=== PATIENT | male | born 1945 | race Caucasian/White ===

== ENCOUNTER 2023-11-22 14:56 | Emergency (ER) | payer OTHER ==
[2023-11-22] MEDS ORDERED: NA CHLORIDE 0.9% 1,000 ML ONE (16:18)
[2023-11-22 16:22] LABS: Absolute Eosinophils 0.2 K/uL (0-0.5); Absolute Lymphocytes (CBC) 1.3 K/uL (0.7-4.9); Absolute Monocytes 0.8 K/uL (0.1-1.3); Absolute Neutrophil 3.7 K/uL (1.8-8.0); Basophils % 0.8 % (0-1.3); Eosinophils % 3.6 % (0-4.4); Hematocrit 39.2 % (39.6-49.0); Hemoglobin 12.9 g/dL (13.6-17.9); Lymphocytes % 21.6 % (15.3-44.8); MCH 27.8 pg (27.0-35.0); MCHC 32.8 g/dL (32.0-36.0); MCV 84.7 fL (80-100); MPV 7.5 fL (7.6-11.3); Monocytes % 12.7 % (3.3-12.3); Neutrophils % 61.3 % (41.7-73.7); Nucleated Red Blood Cells % 0.1 % (0-0); Platelets 221 thou/uL (152-406); RBC Red Blood Cell Count 4.63 M/uL (4.33-5.43); Red Cell Distribution Width 15.4 % (12.1-15.2)
[2023-11-22 16:28] LABS: PT Prothrombin Time 12.5 SECONDS (9.4-12.5); PTT, Activated Partial Thromb 33.8 SECONDS (24.3-36.9); Protime INR 1.14
[2023-11-22 16:37] LABS: Anion Gap 6.8 mEq/L (5.0-15.0); Potassium 3.8 mEq/L (3.5-5.1)
[2023-11-22 17:06] LABS: Specific Gravity 1.013 (1.005-1.030); Sqamous Epithelial None Seen /HPF (None Seen); Urine Bacteria <20 /HPF (<20); Urine Bilirubin NEGATIVE (Negative); Urine Blood 3+ (OVER) (Negative); Urine Clarity Extremely Turbid (Clear); Urine Color Brown (Yellow); Urine Culture Reflex Order REFLEXED; Urine Glucose NEGATIVE (Negative); Urine Ketones NEGATIVE (Negative); Urine Microscopic Reflex YN ORDER UMIC; Urine Mucus Slight /HPF (None Seen); Urine Nitrite NEGATIVE (Negative); Urine Protein 1+ (Negative); Urine RBC >50 /HPF (None Seen); Urine Urobilinogen Normal (Normal); Urine WBC >50 /HPF (<5)
[2023-11-22] MEDS ORDERED: CEFTRIAXONE 1000 MG/VIAL ONE (17:54)
--- NOTE | 2023-11-22 17:58 | ER ---
Nurse's Notes [facility] Name: Allen Swanson Age: 78 yrs Sex: Male : 1945 Arrival Date: 11/22/2023 Time: 14:56 Bed 13 Private MD: Diagnosis: Hematuria, unspecified;UTI/ Urinary tract infection, site not specified Presentation: 11/21 15:20 Chief complaint: Patient states: blood in urinary catheter. Coronavirus screen: At this ko1 time, the client does not indicate any symptoms associated with coronavirus-19. Ebola Screen: No symptoms or risks identified at this time. Initial Sepsis Screen: Does the patient meet any 2 criteria? No. Patient's initial sepsis screen is negative. Does the patient have a suspected source of infection? No. Patient's initial sepsis screen is negative. Risk Assessment: Do you want to hurt yourself or someone else? Patient reports no desire to harm self or others. Onset of symptoms was November 22, 2023. 15:20 Method Of Arrival: Ambulatory ko1 15:20 Acuity: RUDY 3 ko1 Triage Assessment: 15:22 General: Appears in no apparent distress. Behavior is calm, cooperative, appropriate ko1 for age. Pain: Denies pain. Historical: - Allergies: 15:22 No Known Allergies; ko1 - Home Meds: 15:22 Unable to obtain [Active]; ko1 - PMHx: 15:22 History of urinary tract infection; Hypertensive disorder; ko1 - PSHx: 15:22 None; ko1 - Immunization history:: Adult Immunizations up to date. - Infectious Disease History:: Denies. - Social history:: Smoking status: Patient denies any tobacco usage or history of. - Family history:: not pertinent. - Hospitalizations: : No recent hospitalization is reported. Screenin:30 [facility] ED Fall Risk Assessment (Adult) History of falling in the last 3 months, rs5 including since admission No falls in past 3 months (0 pts) Confusion or Disorientation No (0 pts) Intoxicated or Sedated No (0 pts) Impaired Gait No (0 pts) Mobility Assist Device Used No (0 pt) Altered Elimination No (0 pt) Score/Fall Risk Level 0 - 2 = Low Risk Oriented to surroundings, Maintained a safe environment. Abuse screen: Denies threats or abuse. Nutritional screening: No deficits noted. Tuberculosis screening: No symptoms or risk factors identified. Assessment: 15:30 General: Appears in no apparent distress. uncomfortable, Behavior is calm, cooperative. rs5 Pain: Denies pain. Neuro: Level of Consciousness is awake, alert, obeys commands, Oriented to person, place, time, situation. Cardiovascular: Patient's skin is warm and dry. Respiratory: Airway is patent Respiratory effort is even, unlabored, Respiratory pattern is regular, symmetrical. GI: Abdomen is round non-distended, Abd is soft and non tender X 4 quads. : Echavarria in place clamped 300 cc of pink colored urine noted in urine collection bag. 15:30 EENT: No signs and/or symptoms were reported regarding the EENT system. Derm: Skin is rs5 intact, Skin is pink, warm \T\ dry. Musculoskeletal: Range of motion: intact in all extremities. 16:00 Reassessment: to bedside, echavarria bag and echavarria removed per MD orders, 3 way echavarria rs5 inserted per MD orders using aseptic technique. Urine specimen collected and irrigation bag connected to 3 way echavarria. 16:40 Reassessment: 700 cc pink colored urine drained from urine collection bag. rs5 17:46 Reassessment: Patient and/or family updated on plan of care and expected duration. Pain rs5 level reassessed. Patient is alert, oriented x 3, equal unlabored respirations, skin warm/dry/pink. 800 cc clear colored urine drained from urine catheter bag. Vital Signs: 15:20 BP 119 / 74; Pulse 71; Resp 16; Temp 97.6; Pulse Ox 95% on R/A; ko1 17:46 BP 115 / 77; Pulse 74; Resp 17; Pulse Ox 99% on R/A; rs5 18:15 BP 117 / 78; Pulse 70; Resp 17; Pulse Ox 99% on R/A; rs5 ED Course: 14:59 Patient arrived in ED. ts1 15:07 Simba Aguero MD is Attending Physician. rn 15:22 Triage completed. ko1 15:22 Arm band placed on right wrist. Patient placed in an exam room, on a stretcher, on ko1 pulse oximetry, Patient notified of wait time. 15:30 Patient has correct armband on for positive identification. Placed in gown. Bed in low rs5 position. Call light in reach. Side rails up X2. 15:30 No provider procedures requiring assistance completed. rs5 15:40 Inserted saline lock: 20 gauge in right forearm, using aseptic technique. rs5 15:53 Hussein Chicas, RN is Primary Nurse. rs5 18:17 IV discontinued, intact, bleeding controlled, No redness/swelling at site. Pressure rs5 dressing applied. Administered Medications: 17:50 Drug: Rocephin IV 1 grams IV at calculated rate once; Given slow IV push per pharmacy rs5 instructions Route: IV; Rate: calculated rate; Site: right forearm; 18:05 Follow up: Response: No adverse reaction rs5 Medication: 17:21 VIS not applicable for this client. rs5 Outcome: 17:58 Discharge ordered by MD. rn 18:17 Discharged to home ambulatory, with family, rs5 18:17 Condition: stable 18:17 Discharge instructions given to patient, family, Instructed on discharge instructions, follow up and referral plans. medication usage, Demonstrated understanding of instructions, follow-up care, medications, Prescriptions given X 1, 18:20 Patient left the ED. rs5 Signatures: Simba Aguero MD MD rn Lisa Bartlett RN RN ko1 Hussein Chicas, RN RN rs5 Jessica Cordero PAS PAS ts1 Corrections: (The following items were deleted from the chart) 17:23 15:40 Reassessment: to bedside, echavarria bag and echavarria removed per MD orders, 3 way echavarria rs5 inserted per MD orders using aseptic technique. Urine specimen collected and irrigation bag connected to 3 way echavarria. rs5 17:46 16:40 Reassessment: 700 cc pink colored urine drained form urine collection bag. rs5 rs5 18:41 18:26 Patient left the ED. rs5 rs5
--- NOTE | 2023-11-22 17:59 | EDPHYS ---
Physician Documentation [facility] Name: Allen Swanson Age: 78 yrs Sex: Male : 1945 Arrival Date: 11/22/2023 Time: 14:56 Bed 13 Private MD: ED Physician Simba Aguero HPI: 11/21 17:12 This 78 yrs old Male presents to ER via Ambulatory with complaints of Blood In Catheter.rn 17:12 The patient presents with urinary symptoms, hematuria. Onset: The symptoms/episode rn began/occurred today. Modifying factors: The symptoms are alleviated by nothing, the symptoms are aggravated by nothing. Associated signs and symptoms: Pertinent positives: hematuria, Pertinent negatives: abdominal pain, dysuria, fever, vomiting. Severity of symptoms: At their worst the symptoms were mild, in the emergency department the symptoms have improved. The patient has not experienced similar symptoms in the past. Patient and family report hematuria that began today. Has indwelling Leo catheter for a few weeks now due to urinary retention. At some point recently patient had partially pulled out catheter catheter had to be replaced a week or 2 ago. No blood until today. No fever. No dysuria. No abdominal pain. Patient states otherwise feels okay. No blood thinners.. Historical: - Allergies: 15:22 No Known Allergies; ko1 - Home Meds: 15:22 Unable to obtain [Active]; ko1 - PMHx: 15:22 History of urinary tract infection; Hypertensive disorder; ko1 - PSHx: 15:22 None; ko1 - Immunization history:: Adult Immunizations up to date. - Infectious Disease History:: Denies. - Social history:: Smoking status: Patient denies any tobacco usage or history of. - Family history:: not pertinent. - Hospitalizations: : No recent hospitalization is reported. ROS: 17:12 Constitutional: Negative for fever, chills, and weight loss, Cardiovascular: Negative rn for chest pain, palpitations, and edema, Respiratory: Negative for shortness of breath, cough, wheezing, and pleuritic chest pain, Abdomen/GI: Negative for abdominal pain, nausea, vomiting, diarrhea, and constipation, Back: Negative for injury and pain, : Positive for hematuria MS/Extremity: Negative for injury and deformity, Skin: Negative for injury, rash, and discoloration, Neuro: Negative for headache, weakness, numbness, tingling, and seizure, Exam: 17:12 Constitutional: This is a well developed, well nourished patient who is awake, alert, rn and in no acute distress. Cardiovascular: Regular rate and rhythm. No pulse deficits. Respiratory: No increased work of breathing, no retractions or nasal flaring. Abdomen/GI: Soft, non-tender Male : Normal genitalia with no discharge or lesions. Catheter bag with small blood clot but otherwise is almost clear, lightly pink urine. Vital Signs: 15:20 BP 119 / 74; Pulse 71; Resp 16; Temp 97.6; Pulse Ox 95% on R/A; ko1 17:46 BP 115 / 77; Pulse 74; Resp 17; Pulse Ox 99% on R/A; rs5 18:15 BP 117 / 78; Pulse 70; Resp 17; Pulse Ox 99% on R/A; rs5 MDM: 15:07 Patient medically screened. rn 17:19 Differential diagnosis: UTI, Leo catheter problem. Data reviewed: vital signs, nurses rn notes. Data reviewed: lab test result(s), and as a result, I will discharge patient. Counseling: I had a detailed discussion with the patient and/or guardian regarding the historical points, exam findings, and any diagnostic results supporting the discharge/admit diagnosis, lab results, the need for outpatient follow up, to return to the emergency department if symptoms worsen or persist or if there are any questions or concerns that arise at home. Response to treatment: the patient's symptoms have markedly improved after treatment, and as a result, I will discharge patient. Special discussion: I discussed with the patient/guardian in detail that at this point there is no indication for admission to the hospital. It is understood, however, that if the symptoms persist or worsen the patient needs to return immediately for re-evaluation. Based on the history and exam findings, there is no indication for further emergent testing or inpatient evaluation. I discussed with the patient/guardian the need to see the primary care provider for further evaluation of the symptoms. I discussed with the patient/guardian the need to see the urologist for further evaluation of the symptoms. ED course: Patient with new onset hematuria, bladder irrigation shows clear urine now, no longer with clots or gross blood. Urine shows possible UTI, will discharge with antibiotics and have follow-up with urology. I have personally reviewed all of the results, including but not limited to blood tests deemed necessary to safely discharge this patient at this time. All results given to and printed out for patient. I personally went over all the results with the patient and answered all questions. Patient will follow-up with PCP and or specialist as discussed. Return precautions given and understood.. 11/21 15:29 Order name: Urinalysis w/ reflexes; Complete Time: 17:19 rn 11/21 15:29 Order name: CBC with Diff; Complete Time: 16:31 rn 11/21 15:29 Order name: Basic Metabolic Panel; Complete Time: 16:43 rn 11/21 15:29 Order name: Protime (+inr); Complete Time: 16:31 rn 11/21 15:29 Order name: Ptt, Activated; Complete Time: 16:31 rn 11/21 17:21 Order name: Urine Culture [facility] 11/21 15:29 Order name: Bladder Irrigation; Complete Time: 17:19 rn 11/21 15:29 Order name: IV Start; Complete Time: 17:19 rn Administered Medications: 17:50 Drug: Rocephin IV 1 grams IV at calculated rate once; Given slow IV push per pharmacy rs5 instructions Route: IV; Rate: calculated rate; Site: right forearm; 18:05 Follow up: Response: No adverse reaction rs5 Disposition Summary: 11/22/23 17:58 Discharge Ordered Notes: Location: Home rn Problem: new rn Symptoms: have improved rn Condition: Stable rn Diagnosis - Hematuria, unspecified rn - UTI/ Urinary tract infection, site not specified rn Followup: rn - With: Private Physician - When: As needed - Reason: Recheck today's complaints, Re-evaluation by your physician Discharge Instructions: - Discharge Summary Sheet rn - Indwelling Urinary Catheter Care, Adult rn - Hematuria, Adult rn - Urinary Tract Infection, Adult rn Forms: - Medication Reconciliation Form rn - Antibiotic newspaper photojournalist - Prescription Opioid Use rn - Patient Portal Instructions rn - Leadership Thank You Letter rn Prescriptions: - cefpodoxime 100 mg Oral Tablet - take 1 tablet ORAL route every 12 hours for 10 days take with food; 20 tablet; rn Refills: 0, Product Selection Permitted Signatures: Dispatcher [employer] EDGA Simba Aguero MD MD rn Oliver, Kathy, RN RN ko1 Chicas, Hussein, RN RN rs5
[2023-11-22 18:36] VITALS: BP 115/77; TEMP 97.6; O2SAT 99
== END 2023-11-22 18:26 | disposition home or self-care (01) ==
LOC: ER 14:56
DX: N39.0 Urinary tract infection, site not specified (principal)
CPT/HCPCS: 87088; 85025; 81001; 87086; 80048; 36415; 85610; 85730; 96374; 99284; J7030; J0696

== ENCOUNTER 2024-01-04 17:16 | Inpatient (IN) | payer OTHER ==
[2024-01-04] MEDS ORDERED: NA CHLORIDE 0.9% 1,000 ML ONE (19:39)
[2024-01-04 19:52] LABS: Absolute Eosinophils 0.8 K/uL (0-0.5); Absolute Lymphocytes (CBC) 0.2 K/uL (0.7-4.9); Absolute Monocytes 2.5 K/uL (0.1-1.3); Absolute Neutrophil 5.9 K/uL (1.8-8.0); Eosinophils % 8.5 % (0-4.4); Hematocrit 34.4 % (39.6-49.0); Hemoglobin 11.4 g/dL (13.6-17.9); MCH 28.1 pg (27.0-35.0); MCHC 33.2 g/dL (32.0-36.0); MCV 84.9 fL (80-100); MPV 8.3 fL (7.6-11.3); Monocytes % 26.9 % (3.3-12.3); Neutrophils % 62.6 % (41.7-73.7); Platelets 159 thou/uL (152-406); RBC Red Blood Cell Count 4.06 M/uL (4.33-5.43); Red Cell Distribution Width 15.3 % (12.1-15.2)
[2024-01-04 19:54] LABS: PT Prothrombin Time 14.1 SECONDS (9.4-12.5); PTT, Activated Partial Thromb 27.9 SECONDS (24.3-36.9); Protime INR 1.27
--- NOTE | 2024-01-04 20:05 | RAD REPORT ---
EXAM DESCRIPTION: Antonino Single View01/04/2024 7:55 pm CLINICAL HISTORY: cough, fever COMPARISON: No comparisons TECHNIQUE: Portable AP view of the chest. FINDINGS: The lungs are clear. No pneumothorax or effusion. Heart is normal in size. Prominence of the pulmonary major vascular markings. IMPRESSION: Prominence of the pulmonary major vascular markings, may reflect an element of pulmonary hypertension. No other acute cardiopulmonary process.
[2024-01-04 20:06] LABS: SARS-CoV-2 Antigen CONTROL BLUE LINE VIS/BG OK; SARS-CoV-2 Antigen Rapid Res Negative (Negative)
[2024-01-04 20:07] LABS: Albumin/Globulin Ratio 0.8 (1.1-1.8); Anion Gap 11.3 mEq/L (5.0-15.0); Bilirubin Total 1.3 mg/dL (0.2-1.0); Globulin 3.9 g/dL (2.3-3.5); Potassium 3.3 mEq/L (3.5-5.1); Protein, Total 6.9 g/dL (6.4-8.2)
[2024-01-04 20:47] LABS: Band Neutrophils 2 % (0-1); Differential Total Cells Count 100; Eosinophils 1 % (0-3); Lymphocytes 13 % (15-42); Monocytes 8 % (0-10); Segmented Neutrophils 76 % (40-80)
[2024-01-04 20:48] LABS: Blood Morphology Comment NOT SEEN (NOT SEEN); Platelet Estimate ADEQ
--- NOTE | 2024-01-04 20:52 | RAD REPORT ---
EXAM DESCRIPTION: CT - Abdomen Pelvis W Contrast - 01/04/2024 8:19 pm CLINICAL HISTORY: fever, UTI COMPARISON: Chest Single View dated 01/04/2024 TECHNIQUE: Thin cut axial CT imaging of the abdomen and pelvis was performed following intravenous a dministration of 90 mL Isovue 300. Multiplanar reformats were generated and reviewed. All CT scans are performed using dose optimization technique as appropriate and may include automated exposure control or mA/KV adjustment according to patient size. FINDINGS: No suspicious findings in the lung bases. The liver, spleen, and pancreas show no suspicious findings. Gallbladder is moderately distended with out other suspicious features Symmetric renal function is seen with no hydronephrosis or suspicious renal mass. Nonobstructing left lower renal pole 3 mm calculus. Other bilateral punctate calculi not exceeding 2 mm. Moderate sliding hiatal hernia. No dilated bowel loops or bowel wall thickening. No free air, free fl uid or inflammatory stranding. No hernia, mass or bulky lymphadenopathy. The urinary bladder is witho ut significant finding. Markedly enlarged prostate gland projecting against the bladder neck, with ca lcifications. No suspicious bony findings. IMPRESSION: Nonobstructing bilateral renal calculi not exceeding 3 mm. Markedly enlarged prostate gland, projecting against the bladder neck. Moderate hiatal hernia.
[2024-01-04 21:12] LABS: Specific Gravity 1.012 (1.005-1.030); Sqamous Epithelial <5 /HPF (None Seen); Urine Bacteria <20 /HPF (<20); Urine Bilirubin NEGATIVE (Negative); Urine Blood 2+ (Negative); Urine Clarity Extremely Turbid (Clear); Urine Color Light-Yellow (Yellow); Urine Culture Reflex Order REFLEXED; Urine Glucose NEGATIVE (Negative); Urine Ketones NEGATIVE (Negative); Urine Microscopic Reflex YN ORDER UMIC; Urine Mucus Slight /HPF (None Seen); Urine Nitrite NEGATIVE (Negative); Urine Protein TRACE (Negative); Urine Urobilinogen Normal (Normal); Urine WBC >50 /HPF (<5); Urine WBC Clump Few /HPF (None Seen); Urine Yeast (Budding) Trace /HPF (None Seen)
--- NOTE | 2024-01-04 21:22 | EDPHYS ---
Physician Documentation [facility] Name: Allen Swanson Age: 78 yrs Sex: Male : 1945 Arrival Date: 01/04/2024 Time: 17:16 Bed 9 Private MD: ED Physician Joce Myrick HPI: 01/03 18:04 This 78 yrs old Male presents to ER via Ambulatory with complaints of Blood Pressure rn Problem, high heart rate, Fever. 18:04 The patient reports fever, that was measured at 101 degrees Fahrenheit. Onset: The rn symptoms/episode began/occurred at an unknown time. Modifying factors: there are no obvious modifying factors. Severity of symptoms: At their worst the symptoms were moderate in the emergency department the symptoms are unchanged. The patient has experienced similar episodes in the past. The patient has been recently seen by a physician:. Family and patient report not feeling well for weeks, diagnosed with UTI, has been on 5 different abx, still having fever and chills. BP borderline low per family. Report 101 fever with HR to 116. Took tylenol at home with improvement of HR and fever. No abd pain. + cough with mild sob over last few days. . Historical: - Allergies: 17:59 No Known Allergies; tl4 - PMHx: 17:58 History of urinary tract infection; Hypertensive disorder; tl4 17:59 Skin cancer; tl4 - PSHx: 17:59 Skin cancer removal; tl4 - Immunization history:: Adult Immunizations unknown. - Infectious Disease History:: Denies. - Social history:: Smoking status: Patient denies any tobacco usage or history of. - Family history:: not pertinent. - Hospitalizations: : No recent hospitalization is reported. ROS: 18:04 Constitutional: + fever and chills Cardiovascular: Negative for chest pain, rn palpitations, and edema, Respiratory: + cough and sob Abdomen/GI: Negative for abdominal pain, nausea, vomiting, diarrhea, and constipation, MS/Extremity: Negative for injury and deformity, Skin: Negative for injury, rash, and discoloration, Neuro: + generalized weakness Exam: 18:04 Constitutional: This is a well developed, well nourished patient who is awake, alert, rn and in no acute distress. ENT: dry MM Cardiovascular: Regular rate and rhythm. No pulse deficits. Respiratory: No increased work of breathing, no retractions or nasal flaring. Abdomen/GI: Soft, non-tender MS/ Extremity: Pulses equal, no cyanosis. Neuro: Awake and alert, GCS 15 Vital Signs: 17:53 BP 104 / 62; Pulse 94; Resp 16; Temp 98.9(O); Pulse Ox 95% on R/A; Weight 71.21 kg; tl4 Height 5 ft. 9 in. ; Pain 0/10; 19:49 BP 109 / 70; Pulse 79; Resp 17; Temp 98.3; Pulse Ox 97% on R/A; Pain 0/10; le1 23:23 BP 128 / 85; Pulse 80; Resp 20; Pulse Ox 95% ; vc1 17:53 Body Mass Index 23.18 (71.21 kg, 175.26 cm) tl4 17:53 Pain Scale: Adult tl4 19:49 Pain Scale: Adult le1 MDM: 17:44 Patient medically screened. rn 20:36 Data reviewed: vital signs. ED course: Patient signed out to me by previous physician, ec2 in brief patient arrives today for evaluation of fever along with documented tachycardia at home. Patient reported with previous antibiotic therapy for urinary tract infections, undergoing 5 rounds of previous antibiotics. Patient has no specific complaints. Workup reveals a reassuring chest x-ray without focal opacity, plan is to follow-up urine studies, CT abdomen pelvis.. 20:57 ED course: CT imaging shows nonobstructing renal calculi, prostatomegaly, hiatal ec2 hernia. No evidence of infection. . 21:16 ED course: EKG independently reviewed and interpreted by me, shows normal sinus rhythm, ec2 rate of 73, no acute ST segment ovation's, intervals are nonconcerning, right bundle branch block noted.. 21:21 ED course: PreviousUrine is turbid, has leuk esterase, WBCs clumps. Will give ec2 antibiotics, admit for UTI. . 01/03 18:01 Order name: Blood Culture Adult (2) rn 01/03 18:01 Order name: CBC with Diff; Complete Time: 20:50 rn 01/03 18:01 Order name: CMP; Complete Time: 20:22 rn 01/03 18:01 Order name: Lactate w/ 2H reflex if indic.; Complete Time: 20:22 rn 01/03 18:01 Order name: Protime (+inr); Complete Time: 20:22 rn 01/03 18:01 Order name: Ptt, Activated; Complete Time: 20:22 rn 01/03 18:01 Order name: Urinalysis w/ reflexes; Complete Time: 21:20 rn 01/03 18:01 Order name: SARS RAPID; Complete Time: 20:22 rn 01/03 18:01 Order name: Flu; Complete Time: 20:22 rn 01/03 20:46 Order name: Manual Differential; Complete Time: 20:50 EDMS 01/03 21:18 Order name: Urine Culture EDMS 01/03 22:37 Order name: Urinalysis w/ reflexes EDMS 01/03 22:37 Order name: Basic Metabolic Panel EDMS 01/03 22:37 Order name: Basic Metabolic Panel EDMS 01/03 22:37 Order name: CBC with Automated Diff EDMS 01/03 22:37 Order name: CBC with Automated Diff EDMS 01/03 22:37 Order name: Magnesium EDMS 01/03 22:37 Order name: Magnesium EDMS 01/03 22:37 Order name: Phosphorus EDMS 01/03 22:37 Order name: Phosphorus EDMS 01/03 18:01 Order name: Chest Single View XRAY; Complete Time: 20:22 rn 01/03 18:04 Order name: CT Abd/Pelvis - IV Contrast Only; Complete Time: 20:56 rn 01/03 18:01 Order name: Accucheck; Complete Time: 19:41 rn 01/03 18:01 Order name: Cardiac monitoring; Complete Time: 19:41 rn 01/03 18:01 Order name: EKG - Nurse/Tech; Complete Time: 20:26 rn 01/03 18:01 Order name: IV Saline Lock - Large Bore; Complete Time: 19:41 rn 16 18:01 Order name: Labs collected and sent; Complete Time: 19:41 rn 16 18:01 Order name: O2 Per Protocol; Complete Time: 19:41 rn 01/03 18:01 Order name: O2 Sat Monitoring; Complete Time: 19:41 rn 16 18:01 Order name: Vital Signs; Complete Time: 19:41 rn Administered Medications: 19:30 Drug: NS 0.9% IV 500 ml IV at bolus once Route: IV; Rate: bolus; Site: right forearm; le1 20:41 Follow up: Response: No change in condition; IV Status: Completed infusion le1 21:33 Drug: Rocephin IV 1 grams IV at calculated rate once; Given slow IV push per pharmacy le1 instructions Route: IV; Rate: calculated rate; Site: right forearm; 21:43 Follow up: Response: No adverse reaction; IV Status: Completed infusion le1 Disposition Summary: 01/04/24 21:21 Hospitalization Ordered Notes: Hospitalization Status: Inpatient Admission ec2 Provider: Marty Salgado ec2 Location: Telemetry/[facility] (Inpatient) ec2 Condition: Stable ec2 Problem: an ongoing problem ec2 Symptoms: are unchanged ec2 Bed/Room Type: Standard ec2 Room Assignment: 213(01/04/24 21:53) vc1 Diagnosis - UTI/ Urinary tract infection, site not specified ec2 Forms: - Medication Reconciliation Form ec2 - SBAR form ec2 - Leadership Thank You Letter ec2 Signatures: Dispatcher [employer] EDSibma Arnold MD MD rn Calcote, Vanessa, RN RN vc1 Joce Myrick MD MD ec2 Adalberto Mensah RN RN tl4 Travis Meyer RN RN le1 Corrections: (The following items were deleted from the chart) 18:00 17:58 PMHx: Skin cancer (Hypertensive disorder); tl4 tl4 18:00 17:58 PMHx: skin cancer (Hypertensive disorder); tl4 tl4 18:00 17:58 PSHx: Skin cancer removal (Hypertensive disorder); tl4 tl4 18:02 18:02 BLOOD CULTURE*+BA.LAB.BRZ ordered. EDMS EDMS 18:02 18:02 CBC+H.LAB.BRZ ordered. EDMS EDMS 18:02 18:02 COMPREHENSIVE METABOLIC PANEL+C.LAB.BRZ ordered. EDMS EDMS 18:02 18:02 LACTATE+C.LAB.BRZ ordered. EDMS EDMS 18:02 18:02 PROTIME (+INR)+COAG.LAB.BRZ ordered. EDMS EDMS 18:02 18:02 PTT, ACTIVATED+COAG.LAB.BRZ ordered. EDMS EDMS 18:02 18:02 Urinalysis+U.LAB.BRZ ordered. EDMS EDMS 18:02 18:02 SARS-COV-2 Antigen Rapid+I.LAB.BRZ ordered. EDMS EDMS 18:02 18:02 Influenza Screen (A \T\ B)+BA.LAB.BRZ ordered. EDMS EDMS 18:02 18:02 Chest Single View+RAD.RAD.BRZ ordered. EDMS EDMS 20:40 20:37 Leo ordered. ec2 ec2 20:46 19:55 CBC Smear Scan ordered. EDMS EDMS 21:53 21:21 ec2 vc1
--- NOTE | 2024-01-04 21:22 | ER ---
Nurse's Notes [facility] Name: Allen Swanson Age: 78 yrs Sex: Male : 1945 Arrival Date: 01/04/2024 Time: 17:16 Bed 9 Private MD: Diagnosis: UTI/ Urinary tract infection, site not specified Presentation: 01/03 17:53 Chief complaint: Patient's son or daughter states: Daughter reports patient is having tl4 fever, tachycardia, and cough x 2-3 days. Pt is currently being treated for 'urine infection' and just completed his 5th antibiotic. Last Tylenol was 1615. Home health nurse stated pt is dehydrated and constipated. Urinary catheter removed last week. Coronavirus screen: cough unrelated to allergies, fever. Ebola Screen: No symptoms or risks identified at this time. Initial Sepsis Screen: Does the patient meet any 2 criteria? No. Patient's initial sepsis screen is negative. Does the patient have a suspected source of infection? No. Patient's initial sepsis screen is negative. Risk Assessment: Do you want to hurt yourself or someone else? Patient reports no desire to harm self or others. Onset of symptoms is unknown. 17:53 Method Of Arrival: Ambulatory tl4 17:53 Acuity: RUDY 3 tl4 Triage Assessment: 17:56 General: Appears in no apparent distress. Behavior is calm, cooperative. Pain: Denies tl4 pain. EENT: No signs and/or symptoms were reported regarding the EENT system. Neuro: Level of Consciousness is awake, alert, obeys commands, Oriented to person, place, time, situation, Moves all extremities. Full function Gait is steady. Cardiovascular: Capillary refill < 3 seconds Patient's skin is warm and dry. Respiratory: Airway is patent Respiratory effort is even, unlabored, Respiratory pattern is regular, symmetrical. GI: No signs and/or symptoms were reported involving the gastrointestinal system. : Reports ongoing urine infection. Derm: No signs and/or symptoms reported regarding the dermatologic system. Musculoskeletal: No signs and/or symptoms reported regarding the musculoskeletal system. Historical: - Allergies: 17:59 No Known Allergies; tl4 - PMHx: 17:58 History of urinary tract infection; Hypertensive disorder; tl4 17:59 Skin cancer; tl4 - PSHx: 17:59 Skin cancer removal; tl4 - Immunization history:: Adult Immunizations unknown. - Infectious Disease History:: Denies. - Social history:: Smoking status: Patient denies any tobacco usage or history of. - Family history:: not pertinent. - Hospitalizations: : No recent hospitalization is reported. Screenin:42 [facility] ED Fall Risk Assessment (Adult) History of falling in the last 3 months, le1 including since admission No falls in past 3 months (0 pts) Confusion or Disorientation No (0 pts) Intoxicated or Sedated No (0 pts) Impaired Gait No (0 pts) Mobility Assist Device Used No (0 pt) Altered Elimination Yes (1 pt) Score/Fall Risk Level 0 - 2 = Low Risk Oriented to surroundings, Maintained a safe environment, Educated pt \T\ family on fall prevention, incl call for assistance when getting out of bed, Assessed \T\ reinforced patient's understanding of fall precautions, Hourly rounding (assess needs \T\ fall precautionary measures) done. Abuse screen: Denies threats or abuse. Denies injuries from another. Nutritional screening: No deficits noted. Tuberculosis screening: No symptoms or risk factors identified. Assessment: 19:41 General: Appears in no apparent distress. comfortable, Behavior is calm, cooperative. le1 Pain: Denies pain. Neuro: No deficits noted. Cardiovascular: No deficits noted. Respiratory: No deficits noted. Vital Signs: 17:53 BP 104 / 62; Pulse 94; Resp 16; Temp 98.9(O); Pulse Ox 95% on R/A; Weight 71.21 kg; tl4 Height 5 ft. 9 in. ; Pain 0/10; 19:49 BP 109 / 70; Pulse 79; Resp 17; Temp 98.3; Pulse Ox 97% on R/A; Pain 0/10; le1 23:23 BP 128 / 85; Pulse 80; Resp 20; Pulse Ox 95% ; vc1 17:53 Body Mass Index 23.18 (71.21 kg, 175.26 cm) tl4 17:53 Pain Scale: Adult tl4 19:49 Pain Scale: Adult le1 ED Course: 17:19 Patient arrived in ED. im 17:44 Simba Aguero MD is Attending Physician. rn 17:56 Triage completed. tl4 18:00 Arm band placed on left wrist. tl4 18:53 Travis Meyer RN is Primary Nurse. le1 19:12 Radiology exam delayed due to IV insertion attempt and/or patient not having nj appropriate IV at this time. 19:12 Radiology exam delayed due to lab results not completed at this time. (BUN/Creatinine). nj 19:20 First set of blood cultures drawn by me. le1 19:27 Initial lab(s) drawn, by me, sent to lab. Second set of blood cultures drawn by me, le1 COVID swab sent to lab. Flu and/or RSV swab sent to lab. 19:41 Flu Sent. le1 19:41 SARS RAPID Sent. le1 19:41 Blood Culture Adult (2) Sent. le1 19:41 CBC with Diff Sent. le1 19:41 CMP Sent. le1 19:41 Lactate w/ 2H reflex if indic. Sent. le1 19:41 Protime (+inr) Sent. le1 19:41 Ptt, Activated Sent. le1 19:42 Patient has correct armband on for positive identification. Bed in low position. Call le1 light in reach. Side rails up X 1. Adult w/ patient. Provided Education on: informed to use call light if needed. 19:49 Inserted saline lock: 20 gauge in right forearm, using aseptic technique. Blood le1 collected. Flushed with 10 mL NS. 19:57 Chest Single View XRAY In Process Unspecified. EDMS 20:21 CT Abd/Pelvis - IV Contrast Only In Process Unspecified. EDMS 20:30 Attending Physician role handed off by Simba Aguero MD ec2 20:30 Joce Myrick MD is Attending Physician. ec2 20:41 Urine collected: clean catch specimen, clear. le1 21:21 Marty Salgado is Hospitalizing Provider. ec2 23:23 No provider procedures requiring assistance completed. Patient admitted, IV remains in vc1 place. Administered Medications: 19:30 Drug: NS 0.9% IV 500 ml IV at bolus once Route: IV; Rate: bolus; Site: right forearm; le1 20:41 Follow up: Response: No change in condition; IV Status: Completed infusion le1 21:33 Drug: Rocephin IV 1 grams IV at calculated rate once; Given slow IV push per pharmacy le1 instructions Route: IV; Rate: calculated rate; Site: right forearm; 21:43 Follow up: Response: No adverse reaction; IV Status: Completed infusion le1 Medication: 19:43 VIS not applicable for this client. le1 Outcome: 21:21 Decision to Hospitalize by Provider. ec2 23:24 Admitted to Med/surg accompanied by tech, via wheelchair, room 213, vc1 23:24 Condition: good 23:25 Patient left the ED. vc1 Signatures: Dispatcher [employer] EDSimba Arnold MD MD rn Jordan, Nathan nj Calcote, Vanessa, RN RN vc1 Tammy Celestin Edwin, MD MD ec2 Adalberto Mensah RN RN tl4 Travis Meyer RN RN le1 Corrections: (The following items were deleted from the chart) 18:00 17:58 PMHx: Skin cancer (Hypertensive disorder); tl4 tl4 18:00 17:58 PMHx: skin cancer (Hypertensive disorder); tl4 tl4 18:00 17:58 PSHx: Skin cancer removal (Hypertensive disorder); tl4 tl4
[2024-01-04] MEDS ORDERED: CEFTRIAXONE 1000 MG/VIAL ONE (21:30)
[2024-01-04] MEDS ORDERED: ACETAMINOPHEN 500 MG TAB PO PRN (22:29)
[2024-01-04] MEDS ORDERED: ONDANSETRON 4 MG/2 ML VIAL IV PRN (22:29)
--- NOTE | 2024-01-04 22:46 | P.HP ---
Certification for Inpatient Patient admitted to: Inpatient With expected LOS: >2 Midnights Practitioner: I am a practitioner with admitting privileges, knowledge of patient current condition, hospital course, and medical plan of care. Services: Services provided to patient in accordance with Admission requirements found in Title 42 Section 412.3 of the Code of Federal Regulations Patient History Date of Service: 01/04/24 Reason for admission: Fever History of Present Illness: 78-year-old gentleman with a history of hypertension, BPH, history of urinary retention status post Leo catheter which was recently removed by his urologist Dr. Hayes presented to the emergency department due to intermittent fever, last episode this afternoon. Patient reports he continues to experience intermittent fever despite taking multiple antibiotics for urinary tract infection. Patient stated he recently saw Dr. Hayes who discontinued his Leo catheter which was inserted for urinary retention. Patient reported he has not had any problem after the Leo catheter removed except intermittent dribbling, urgency and nocturia. He denied any dysuria. Workup in the emergency department with UA shows presence of UTI. Checks x-ray shows no acute infiltrate. Patient has a history of skin graft performed by Dr. Reyes which according to patient is healing well. Patient is hospitalized for further management of UTI that has failed outpatient antibiotics. Allergies No Known Allergies Allergy (Verified 11/19/23 11:31) Home Medications: Amlodipine Bes/Olmesartan Med [Amlodipine-Olmesartan 10-40 mg] 1 tab PO DAILY 11/16/23 Ascorbic Acid [Vitamin C] 500 mg PO M,W,F 11/16/23 Ciprofloxacin HCl 500 mg PO BID 11/16/23 Ferrous Sulfate [Feosol] 325 mg PO M,W,F 11/16/23 Pantoprazole [Protonix Tab] 40 mg PO DAILY 11/16/23 Propranolol [Inderal LA] 80 mg PO DAILY 11/16/23 Sucralfate [Carafate -Tab] 1 gm PO DAILY 11/16/23 - Past Medical/Surgical History -: Essential hypertension -: BPH -: History of urinary retention -: Skin graft to scalp - Family History Father -: Cancer (Skin cancer) - Social History Smoking Status: Unknown if ever smoked Alcohol use: No CD- Drugs: No Place of Residence: Home Review of Systems Other: Except as documented, all other systems reviewed and negative. Physical Examination - Physical Exam General: Alert, In no apparent distress, Oriented x3 HEENT: Mucous membr. moist/pink, Sclerae nonicteric Neck: Supple, JVD not distended Respiratory: Clear to auscultation bilaterally, Normal air movement Cardiovascular: No edema, Regular rate/rhythm, Normal S1 S2, No murmurs Capillary refill: <2 Seconds Gastrointestinal: Normal bowel sounds, Soft and benign, Non-distended, No tenderness Musculoskeletal: No swelling, No tenderness Integumentary: No rashes, No cyanosis Neurological: Normal speech, Normal strength at 5/5 x4 extr, Cranial nerves 3-12 intact Lymphatics: No axilla or inguinal lymphadenopathy - Studies Laboratory Data (last 24 hrs) 01/04/24 01/04/24 01/04/24 19:20 19:20 19:20 WBC 9.50 Hgb 11.4 L Hct 34.4 L Plt Count 159 PT 14.1 H INR 1.27 APTT 27.9 Sodium 136 Potassium 3.3 L BUN 13 Creatinine 0.99 Glucose 103 Total Bilirubin 1.3 H AST 47 H ALT 31 Alkaline Phosphatase 88 Microbiology Data (last 24 hrs): 01/04/24 19:30 Nasopharnyx Influenza Type A Antigen Screen - Final 01/04/24 19:30 Nasopharnyx Influenza Type B Antigen Screen - Final Assessment and Plan - Problems (Diagnosis) (1) Acute cystitis with hematuria Current Visit: Yes Status: Acute (2) Essential hypertension Current Visit: Yes Status: Acute (3) Chronic anemia Current Visit: Yes Status: Acute (4) BPH (benign prostatic hyperplasia) Current Visit: Yes Status: Acute (5) Nephrolithiasis Current Visit: Yes Status: Acute - Plan Acute cystitis with hematuria/nephrolithiasis Admit patient to the medical floor. Presence of nonobstructive renal stones. Start IV cefepime. Follow urine culture and blood culture IV hydration. BPH Patient denies any difficulty with urination. Leo catheter discontinued by urology 1 week ago. Follow-up with urology as outpatient. Patient stated he has an appointment with Dr. Hayes next week. Essential hypertension BP is soft. Hold home antihypertensives for now. Monitor BP. Chronic anemia Monitor CBC and transfuse as needed. DVT prophylaxis: Lovenox Advanced directive: full code - Advance Directives Does patient have a Living Will: No Does patient have a Durable POA for Healthcare: No
[2024-01-04] MEDS: NA CHLORIDE 0.9% 1,000 ML IV SCH (23:40)
[2024-01-04 23:48] VITALS: BMI 24.0
[2024-01-05] MEDS: PANTOPRAZOLE 40MG TABLET PO SCH (06:10)
[2024-01-05 06:30] LABS: Absolute Basophils 0.1 K/uL (0-0.5); Absolute Eosinophils 0.1 K/uL (0-0.5); Absolute Lymphocytes (CBC) 0.5 K/uL (0.7-4.9); Absolute Monocytes 0.7 K/uL (0.1-1.3); Absolute Neutrophil 5.4 K/uL (1.8-8.0); Eosinophils % 1.4 % (0-4.4); Hematocrit 31.7 % (39.6-49.0); Hemoglobin 10.7 g/dL (13.6-17.9); MCH 28.5 pg (27.0-35.0); MCHC 33.8 g/dL (32.0-36.0); MCV 84.5 fL (80-100); MPV 8.4 fL (7.6-11.3); Monocytes % 10.5 % (3.3-12.3); Neutrophils % 79.1 % (41.7-73.7); Nucleated Red Blood Cells % 0.1 % (0-0); Platelets 163 thou/uL (152-406); RBC Red Blood Cell Count 3.75 M/uL (4.33-5.43); Red Cell Distribution Width 15.6 % (12.1-15.2)
[2024-01-05 06:44] LABS: Anion Gap 8.5 mEq/L (5.0-15.0); Magnesium 2.1 mg/dL (1.6-2.4); Phosphorus 2.9 mg/dL (2.5-4.9); Potassium 3.5 mEq/L (3.5-5.1)
--- NOTE | 2024-01-05 06:53 | P.PN ---
Date of Service: 01/05/24 Subjective: has been dealing with intermittent fever at home for 2-3 days reports 5 abx / utis in last 2-3 months. denies urinary issues earlier in year reports some intermittent urinary dribbling, urgency since echavarria removal ROS: 10 point ROS as noted above, otherwise negative Physical Exam: GEN: Alert, oriented, NAD HEENT: Normal conjunctiva, sclera anicteric, dressing in place to scalp from recent skin graft CV: Regular rate and rhythm, no edema Pulm: Nonlabored respirations on room air, clear bilaterally ABD: Soft, nontender, nondistended Neuro: Normal speech, normal affect vitals reviewed Problem List: Acute cystitis with hematuria Nephrolithiasis Elevated LFTs BPH hx urinary retention; secondary to enlarged prostate Essential hypertension Chronic anemia s/p recent skin graft (11/19/23) hx dysphagia Acute cystitis with hematuria Nephrolithiasis Presents with intermittent fever, urinary dribbling, urgency and nocturia since echavarria removal. Denies any dysuria. has been on 5 different antibiotics recently per family for ?UTI/infection per chart filled abx in last ~2months: Cipro (11/13) -> bactrim (11/20) -> cefpodoxime (11/22) -> nitrofurantoin (12/23) -> cephalexin (12/25) had echavarria removed ~[address] Hayes, his urologist. Echavarria was placed for urinary retention CT abdomen (01/03): nonobstructing bilateral renal calculi < 3mm. Markedly enlarged prostate gland. Moderate hiatal hernia urinalysis in ED with +LE, RBC, WBC, < 20 bacteria Given rocephin, IVF in ED. Start IV cefepime (01/04-) Follow urine culture and blood cx Continue IV fluids check PVR, will likely need echavarria for retention Elevated LFTs T bili 1.3, AST 47 Unknown etiology. Possibly reactive from infxn Daily labs BPH hx urinary retention Patient recently had echavarria catheter removed removed ~1 week ago by his Urologist. confirm home meds, restart as appropriate f/u outpatient. Patient stated he has an appointment with Dr. Hayes next week. check PVR Essential hypertension BP is soft. Hold home antihypertensives for now. confirm home meds. Monitor BP. Chronic anemia hgb stable. Daily labs. s/p recent skin graft (11/19/23) had recent skin graft with Dr. Reyes ~2 months ago d/t ulcerated skin lesion that was concerning for neoplasia; Biopsy from surgery came back +Basal cell carcinoma. has been seeing Dr. Reyes as outpatient Does not appear infected at this time continue wound care VTE: Lovenox Code: Full Dispo: Home, ~2 days Pending cultures, afebrile > 24 hours. Time Spent Managing Pts Care (In Minutes): 39
[2024-01-05] MEDS: POTASSIUM 25 MEQ EFFERV TAB PO ONE (08:41)
[2024-01-05] MEDS: CEFEPIME 2 GM in NA CHLORIDE 0.9% 100 ML IV SCH (08:42)
[2024-01-05] MEDS: ENOXAPARIN 40 MG/0.4 ML SQ SCH (08:43)
[2024-01-05] MEDS: SUCRALFATE 1 GM TABLET PO SCH (08:44)
[2024-01-05] MEDS ORDERED: PROPRANOLOL HCL 80 MG SA CAP PO SCH (09:00)
[2024-01-06 05:45] LABS: Absolute Eosinophils 0.2 K/uL (0-0.5); Absolute Neutrophil 3.4 K/uL (1.8-8.0); Basophils % 0.7 % (0-1.3); Eosinophils % 2.7 % (0-4.4); Hematocrit 31.6 % (39.6-49.0); Hemoglobin 10.7 g/dL (13.6-17.9); Lymphocytes % 17.5 % (15.3-44.8); MCH 28.6 pg (27.0-35.0); MCHC 33.8 g/dL (32.0-36.0); MCV 84.6 fL (80-100); MPV 8.4 fL (7.6-11.3); Monocytes % 17.5 % (3.3-12.3); Neutrophils % 61.6 % (41.7-73.7); Platelets 175 thou/uL (152-406); RBC Red Blood Cell Count 3.74 M/uL (4.33-5.43); Red Cell Distribution Width 15.6 % (12.1-15.2)
[2024-01-06 06:01] LABS: Albumin 2.6 g/dL (3.4-5.0); Albumin/Globulin Ratio 0.7 (1.1-1.8); Anion Gap 4.5 mEq/L (5.0-15.0); Bilirubin Total 0.4 mg/dL (0.2-1.0); Globulin 3.5 g/dL (2.3-3.5); Magnesium 1.9 mg/dL (1.6-2.4); Potassium 3.5 mEq/L (3.5-5.1); Protein, Total 6.1 g/dL (6.4-8.2)
[2024-01-06] MEDS: POTASSIUM 25 MEQ EFFERV TAB PO ONE (08:17)
--- NOTE | 2024-01-06 09:14 | P.PN ---
Date of Service: 01/06/24 Subjective: feeling better today denies any new issues overnight ~3.5L UOP since echavarria placed yesterday 100.0 temp overnight ROS: 10 point ROS as noted above, otherwise negative Physical Exam: GEN: Alert, oriented, NAD HEENT: Normal conjunctiva, sclera anicteric CV: Regular rate and rhythm, no edema Pulm: Nonlabored respirations on room air, clear bilaterally ABD: Soft, nontender, nondistended Neuro: Normal speech, normal affect echavarria reinserted 01/04 d/t urinary retention vitals reviewed Problem List: Acute cystitis with hematuria Nephrolithiasis BPH hx urinary retention; secondary to enlarged prostate Elevated LFTs, improving Essential hypertension Chronic anemia s/p recent skin graft (11/19/23) hx dysphagia Acute cystitis with hematuria Nephrolithiasis Presents with intermittent fever, urinary dribbling, urgency and nocturia since echavarria removal. Denies any dysuria. has been on 5 different antibiotics recently per family for ?UTI/infection per chart filled abx in last ~2months: Cipro (11/13) -> bactrim (11/20) -> cefpodoxime (11/22) -> nitrofurantoin (12/23) -> cephalexin (12/25) had echavarria removed ~[address] Hayes, his urologist. Echavarria was placed for urinary retention Echavarria reinserted (01/04) after PVR noted >550ml CT abdomen (01/03): nonobstructing bilateral renal calculi < 3mm. Markedly enlarged prostate gland. Moderate hiatal hernia urine cx (01/03): 4+ GNR prelim blood cx (01/03): NGTD continue IV cefepime (01/04-) BPH hx urinary retention; secondary to enlarged prostate Patient recently had echavarria catheter removed ~1 week ago by his Urologist. Echavarria reinserted 01/04 after PVR > 550ml urine ~3.5L UOP since echavarria placement Continue Flomax Patient stated he has an appointment with Dr. Hayes tomorrow Will alert Dr. Hayes the patient will be missing the appointment and be in the hospital Elevated LFTs, improving T bili 1.3, AST 47 on admission Unknown etiology. Possibly reactive from infxn or antibiotics improving Essential hypertension BP improving confirm home meds, restart as appropriate Chronic anemia hgb stable. Daily labs. s/p recent skin graft (11/19/23) had recent skin graft with Dr. Reyes ~2 months ago d/t ulcerated skin lesion that was concerning for neoplasia; Biopsy from surgery came back +Basal cell carcinoma. has been seeing Dr. Reyes as outpatient Does not appear infected at this time continue wound care VTE: Lovenox Code: Full Dispo: Home, ~1-2 days Pending cultures, afebrile > 24 hours Time Spent Managing Pts Care (In Minutes): 39
[2024-01-06] MEDS: TAMSULOSIN 0.4 MG SR CAP PO SCH (20:28)
[2024-01-06 20:30] VITALS: O2SAT 94
[2024-01-07 04:50] LABS: Absolute Basophils 0.1 K/uL (0-0.5); Absolute Eosinophils 0.2 K/uL (0-0.5); Absolute Lymphocytes (CBC) 1.2 K/uL (0.7-4.9); Absolute Monocytes 0.9 K/uL (0.1-1.3); Absolute Neutrophil 3.4 K/uL (1.8-8.0); Basophils % 1.5 % (0-1.3); Eosinophils % 4.1 % (0-4.4); Hematocrit 34.6 % (39.6-49.0); Hemoglobin 11.4 g/dL (13.6-17.9); MCH 27.8 pg (27.0-35.0); MCHC 32.8 g/dL (32.0-36.0); MCV 84.8 fL (80-100); Monocytes % 15.4 % (3.3-12.3); Platelets 197 thou/uL (152-406); RBC Red Blood Cell Count 4.08 M/uL (4.33-5.43); Red Cell Distribution Width 15.6 % (12.1-15.2)
[2024-01-07 05:06] LABS: Albumin 2.7 g/dL (3.4-5.0); Albumin/Globulin Ratio 0.7 (1.1-1.8); Anion Gap 9.7 mEq/L (5.0-15.0); Bilirubin Total 0.5 mg/dL (0.2-1.0); Globulin 3.9 g/dL (2.3-3.5); Potassium 3.7 mEq/L (3.5-5.1); Protein, Total 6.6 g/dL (6.4-8.2)
--- NOTE | 2024-01-07 08:33 | P.DS ---
Admission Date: 01/04/24 Discharge Date: 01/07/24 Disposition: ROUTINE DISCHARGE Discharge Condition: GOOD Reason for Admission: Fever Brief History of Present Illness: 78yo M, PMH: hypertension, BPH, history of urinary retention status post Echavarria catheter which was recently removed by his urologist Dr. Hayes Patient presented to the emergency department due to intermittent fever, last episode this afternoon. Patient reports he continues to experience intermittent fever despite taking multiple antibiotics for urinary tract infection. Patient stated he recently saw Dr. Hayes who discontinued his Echavarria catheter which was inserted for urinary retention. Patient reported he has not had any problem after the Echavarria catheter removed except intermittent dribbling, urgency and nocturia. He denied any dysuria. Workup in the emergency department with UA shows presence of UTI. Checks x-ray shows no acute infiltrate. Patient has a history of skin graft performed by Dr. Reyes which according to patient is healing well. Patient is hospitalized for further management of UTI that has failed outpatient antibiotics. Hospital Course: Problem List: Acute cystitis with hematuria Nephrolithiasis BPH hx urinary retention; secondary to enlarged prostate Elevated LFTs, improved Essential hypertension Chronic anemia s/p recent skin graft (11/19/23) hx dysphagia Physician discharge instructions: Patient presented with intermittent fever x2 days, urinary dribbling, urgency and nocturia for ~1 week since his Echavarria was removed by his urologist in the office. Found to have a UTI. CT abdomen noted nonobstructing bilateral renal calculi < 3mm, markedly enlarged prostate gland, moderate hiatal hernia otherwise negative. Patient received empiric cefepime while hospitalized and had improvement of his symptoms, resolution of fever. Final urine culture came back on day of discharge - grew Pseudomonas Aeruginosa, resistant to cefepime and susceptible to levaquin/ciprofloxacin. Blood cultures have been without growth since 01/03. Patient was feeling better, afebrile > 24 hours without leukocytosis, and was deemed stable for discharge. Patient is to complete 10 days of Ciprofloxacin on discharge. During his hospitalization, patient reported only urinating ~100ml at a time. Post void residual was > 550 ml. Echavarria was subsequently inserted without complications. Advised to follow up with urology for further management. A message was sent to Dr. Hayes to update with these events. Patient has an appointment this afternoon with Dr Hayes at 4:30pm Family updated as well. Medications: Cirpofloxacin 500 mg twice daily for 10 days Follow up: PCP 3-[address] Hayes, Urology, today as scheduled Please call to schedule / confirm appointments Physical Exam: GEN: Alert, oriented, NAD HEENT: Normal conjunctiva, sclera anicteric CV: Regular rate and rhythm, no edema Pulm: Nonlabored respirations on room air, clear bilaterally ABD: Soft, nontender, nondistended Neuro: Normal speech, normal affect echavarria reinserted 01/04 Vital Signs/Physical Exam: Temp Pulse Resp BP Pulse Ox 98.5 F 78 16 135/84 94 01/07/24 04:00 01/07/24 04:00 01/07/24 04:00 01/07/24 04:00 01/07/24 04:00 Laboratory Data at Discharge: WBC 5.90 thou/uL (4.3-10.9) 01/07/24 04:34 Hgb 11.4 g/dL (13.6-17.9) L 01/07/24 04:34 Hct 34.6 % (39.6-49.0) L 01/07/24 04:34 Plt Count 197 thou/uL (152-406) 01/07/24 04:34 PT 14.1 SECONDS (9.4-12.5) H 01/04/24 19:20 INR 1.27 01/04/24 19:20 APTT 27.9 SECONDS (24.3-36.9) 01/04/24 19:20 Sodium 141 mEq/L (136-145) 01/07/24 04:34 Potassium 3.7 mEq/L (3.5-5.1) 01/07/24 04:34 BUN 12 mg/dL (7-18) 01/07/24 04:34 Creatinine 0.76 mg/dL (0.70-1.30) 01/07/24 04:34 Glucose 89 mg/dL (74-106) 01/07/24 04:34 Phosphorus 2.9 mg/dL (2.5-4.9) 01/05/24 05:42 Magnesium 2.0 mg/dL (1.6-2.4) 01/07/24 04:34 Total Bilirubin 0.5 mg/dL (0.2-1.0) 01/07/24 04:34 AST 60 U/L (15-37) H 01/07/24 04:34 ALT 46 U/L (16-61) 01/07/24 04:34 Alkaline Phosphatase 99 U/L (45-117) 01/07/24 04:34 Home Medications: Ascorbic Acid [Vitamin C*] 500 mg PO M,W,F 11/16/23 Pantoprazole [Protonix Tab*] 40 mg PO DAILY 11/16/23 Sucralfate [Carafate*] 1 gm PO DAILY 11/16/23 Tamsulosin [Flomax*] 0.4 mg PO BEDTIME 01/05/24 Ciprofloxacin HCl [Cipro] 500 mg PO BID 10 Days #20 tab 01/07/24 New Medications: Ciprofloxacin HCl [Cipro] 500 mg PO BID 10 Days #20 tab Physician Discharge Instructions: Physician discharge instructions: Patient presented with intermittent fever x2 days, urinary dribbling, urgency and nocturia for ~1 week since his Echavarria was removed by his urologist in the office. Found to have a UTI. CT abdomen noted nonobstructing bilateral renal calculi < 3mm, markedly enlarged prostate gland, moderate hiatal hernia otherwise negative. Patient received empiric cefepime while hospitalized and had improvement of his symptoms, resolution of fever. Final urine culture came back on day of discharge - grew Pseudomonas Aeruginosa, resistant to cefepime and susceptible to levaquin/ciprofloxacin. Blood cultures have been without growth since 01/03. Patient was feeling better, afebrile > 24 hours without leukocytosis, and was deemed stable for discharge. Patient is to complete 10 days of Ciprofloxacin on discharge. During his hospitalization, patient reported only urinating ~100ml at a time. Post void residual was > 550 ml. Echavarria was subsequently inserted without complications. Advised to follow up with urology for further management. A message was sent to Dr. Hayes to update with these events. Patient has an appointment this afternoon with Dr Hayes at 4:30pm Family updated as well. Medications: Cirpofloxacin 500 mg twice daily for 10 days Follow up: PCP 3-[address] Hayes, Urology, today as scheduled Please call to schedule / confirm appointments Followup: Xi Carson, DO [Primary Care Provider] - Time spent managing pt's care (in minutes): 45
[2024-01-07 08:41] VITALS: BP 137/78; TEMP 97.7
--- OUTSIDE RECORDS SUMMARY | 2024-01-07 08:51 | XMS REPORT | Continuity of Care Document ---
Author Name Unknown Address [address] [facility]. [address] [place] [address] [facility] thconnect Address [address] [facility] [address] [place] [address] Care Team Providers Care Health Underwriter Name Role Phone Xi Carson Attending Clinician Unavailable Problems Condition Name Condition Details Condition Category Status Onset Date Resolution Date Last Treatment Date Treating Clinician Comments Source [id number] Elevated PSA Problem [facility] [id number] Acute urinary retention Problem [facility] [id number] Chronic cystitis Problem [facility] [id number] Other obstructiv e and reflux uropathy Problem [facility] [id number] Gross hematuria Problem [facility] [id number] Benign prostatic hyperplasi a with lower urinary tract symptoms Problem [facility] Social History Social Habit Start Date Stop Date Quantity Comments Source History of Tobacco Use [facility] Sex Assigned At [facility] Smoking Status Start Date Stop Date Source Never Smoker [facility] Medications Ordered Medication Name Filled Medication Name Start Date Stop Date Current Medication? Ordering Clinician Indication Dosage Frequency Signature (SIG) Comments Components Source Cephalexin 500 MG Cephalexin 500 MG 8-07 00:00: 00 No 1{capsu le} TID Cephalexin 500 MG Flomax 0.4 MG Flomax 0.4 MG 12-11 00:00: 00 No 1{capsu le_at_b edtime} QD Flomax 0.4 MG Vitamin C 500 MG Vitamin C 500 MG 12-11 00:00: 00 No Vitamin C 500 MG MiraLax 17 GM/SCOOP MiraLax 17 GM/SCOOP 12-11 00:00: 00 No QD MiraLax 17 GM/SCOOP Sucralfate 1 GM Sucralfate 1 GM No Sucralfate 1 GM Ferrous Sulfate 325 (65 Fe) MG Ferrous Sulfate 325 (65 Fe) MG No Ferrous Sulfate 325 (65 Fe) MG Pantoprazol e Sodium 40 MG Pantoprazol e Sodium 40 MG No Pantoprazo le Sodium 40 MG Cefpodoxime Proxetil 100 MG Cefpodoxime Proxetil 100 MG No Cefpodoxim e Proxetil 100 MG amLODIPine- Olmesartan 5-40 MG amLODIPine- Olmesartan 5-40 MG No amLODIPine -Olmesarta n 5-40 MG Ciprofloxac in HCl 500 MG Ciprofloxac in HCl 500 MG No Ciprofloxa paola HCl 500 MG Vital Signs Vital Name Observation Time Observation Value Comments S ource height 2023-12-26 11:00:00 68 [in_i] Commo n [facility] weight 2023-12-26 11:00:00 158.4 [lb_av] Co [facility] temperature 2023-12-26 11:00:00 97.2 [degF] Com mon [facility] bmi 2023-12-26 11:00:00 24.08 kg/m2 Comm on [facility] oximetry 2023-12-26 11:00:00 90 % Commo n [facility] blood pressure systolic 2023-12-26 11:00:00 126 mm[Hg] Common [facility] blood pressure diastolic 2023-12-26 11:00:00 68 mm[Hg] Common [facility] height 2023-12-12 10:45:00 68 [in_i] Commo n [facility] weight 2023-12-12 10:45:00 157.6 [lb_av] Co mmon [facility] bmi 2023-12-12 10:45:00 23.96 kg/m2 Comm on [facility] blood pressure systolic 2023-12-12 10:45:00 160 mm[Hg] [facility] blood pressure diastolic 2023-12-12 10:45:00 96 mm[Hg] [facility] Encounters Start Date/Time End Date/Time Encounter Type Admission Type Attending [facility] Care Department Encounter ID Source 2023-12-12 10:40:01 Outpatient Alli Xi STLMLC STLMLC [id number] [facility] 2023-12-26 00:00:00 2023-12-26 00:00:00 OFFICE VISIT ESTAB PT LEVEL 4 [facility]LMLC STLMLC [id number] [facility] 2023-12-24 00:00:00 2023-12-24 00:00:00 (TEL) STLMLC STLMLC [id number] [facility] 2023-12-12 00:00:00 2023-12-12 00:00:00 OFFICE VISIT NEW PT LEVEL 3 STLMLC STLMLC [id number] [facility]
[2024-01-07] MEDS: CIPROFLOXACIN HCL 500 MG TAB PO ONE (09:17)
[2024-01-07] MEDS: FERROUS SULFATE 325 MG TAB PO SCH (09:18)
[2024-01-07] MEDS: ASCORBIC ACID 500 MG TABLET PO SCH (09:20)
--- NOTE | 2024-01-08 17:58 | EKG ---
Test Date: 2024-01-04 Test Time: 20:04:33 Director Of Public Health: LIO MEASUREMENT RESULTS: Intervals: Rate: 73 RI: 152 QRSD: 140 QT: 452 QTc: 497 [place]: P: 15 RI: 152 QRS: 48 T: 30 INTERPRETIVE STATEMENTS: Normal sinus rhythm Right bundle branch block Abnormal ECG Compared to ECG 11/16/2023 14:25:45 Sinus bradycardia no longer present Electronically Signed On 01-08-24 17:49:40 CDT by Sj Montilla
== END 2024-01-07 10:40 | disposition home or self-care (01) | DRG 690 ==
LOC: ER 17:16 → ERHOLD 22:26 → 2ND 22:58
PROVIDERS: ADMIT Internal Medicine; ATTEND Hospitalist
PROC: 0T9B70Z Drainage of Bladder with Drainage Device, Via Natural or Artificial Opening (ICD-10-PCS; principal; 2024-01-05)
DX: N30.01 Acute cystitis with hematuria (principal); Z16.19 Resistance to other specified beta lactam antibiotics; B96.5 Pseudomonas (aeruginosa) (mallei) (pseudomallei) as the cause of diseases classified elsewhere; I10 Essential (primary) hypertension; D64.9 Anemia, unspecified; C44.41 Basal cell carcinoma of skin of scalp and neck; K44.9 Diaphragmatic hernia without obstruction or gangrene; N20.0 Calculus of kidney; N40.1 Benign prostatic hyperplasia with lower urinary tract symptoms
CPT/HCPCS: 36415; 71045; 74177; 80048; 80053; 81001; 83605; 83735; 84100; 85025; 85610; 85730; 87040; 87086; 87088; 87205; 87804; 87811; 93005; 94760; 96361; 96374; 99285; J0692; J0696; J1650; J7030; Q9967

== ENCOUNTER 2024-03-10 11:23 | Inpatient (IN) | payer OTHER ==
[2024-03-10 12:19] LABS: Absolute Monocytes 1.1 K/uL (0.1-1.3); Absolute Neutrophil 6.7 K/uL (1.8-8.0); Basophils % 0.3 % (0-1.3); Eosinophils % 0.4 % (0-4.4); Hematocrit 36.3 % (39.6-49.0); Hemoglobin 11.8 g/dL (13.6-17.9); Lymphocytes % 11.6 % (15.3-44.8); MCH 27.7 pg (27.0-35.0); MCHC 32.4 g/dL (32.0-36.0); MCV 85.6 fL (80-100); MPV 8.8 fL (7.6-11.3); Neutrophils % 75.7 % (41.7-73.7); Platelets 118 thou/uL (152-406); RBC Red Blood Cell Count 4.25 M/uL (4.33-5.43); Red Cell Distribution Width 15.7 % (12.1-15.2)
[2024-03-10] MEDS ORDERED: NA CHLORIDE 0.9% 1,000 ML ONE (12:24)
[2024-03-10 12:36] LABS: PT Prothrombin Time 13.6 SECONDS (9.4-12.5); Protime INR 1.22
[2024-03-10 12:38] LABS: Albumin/Globulin Ratio 0.8 (1.1-1.8); Anion Gap 9.3 mEq/L (5.0-15.0); Bilirubin Direct 0.3 mg/dL (0-0.2); Bilirubin Indirect, Calculated 0.8 mg/dL (0.2-0.8); Bilirubin Total 1.1 mg/dL (0.2-1.0); Globulin 3.6 g/dL (2.3-3.5); Magnesium 1.8 mg/dL (1.6-2.4); Potassium 3.3 mEq/L (3.5-5.1); Protein, Total 6.6 g/dL (6.4-8.2); Troponin High Sensitivity 10.2 pg/mL (<58.9)
--- NOTE | 2024-03-10 12:42 | RAD REPORT ---
Procedure: Chest Single View HISTORY: Chest pain COMPARISON: December 2023 FINDINGS: The lungs appear clear of acute infiltrate. No significant pleural effusion noted. The heart is normal size. 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 Is unchanged from prior exam
[2024-03-10 14:37] LABS: SARS-CoV-2 Antigen CONTROL BLUE LINE VIS/BG OK; SARS-CoV-2 Antigen Rapid Res Negative (Negative)
[2024-03-10 16:12] LABS: Sqamous Epithelial None Seen /HPF (None Seen); Urine Bacteria <20 /HPF (<20); Urine Crystals Unidentified Few /HPF (None Seen); Urine Culture Reflex Order REFLEXED; Urine Micro Reflex YN NO BILL MICROSCOPIC; Urine Mucus Slight /HPF (None Seen); Urine RBC >50 /HPF (None Seen); Urine WBC >50 /HPF (<5); Urine WBC Clump Many /HPF (None Seen); Urine Yeast (Budding) Occasional /HPF (None Seen)
--- NOTE | 2024-03-10 16:36 | ER ---
Nurse's Notes [facility] Name: Allen Swanson Age: 79 yrs Sex: Male : 1945 Arrival Date: 03/10/2024 Time: 11:23 Bed 2 Private MD: Diagnosis: UTI/ Urinary tract infection, site not specified;Weakness;Hypotension, unspecified;Dehydration Presentation: 03/10 11:30 Chief complaint: Patient states: Weak, fatigue, low BP started last night. Couldn't ll1 sleep and restless. Coronavirus screen: Client denies travel out of the [place] in the last 14 days. At this time, the client does not indicate any symptoms associated with coronavirus-19. Ebola Screen: Patient denies travel to an Ebola-affected area in the 21 days before illness onset. Initial Sepsis Screen: Does the patient meet any 2 criteria? No. Patient's initial sepsis screen is negative. Does the patient have a suspected source of infection? No. Patient's initial sepsis screen is negative. Risk Assessment: Do you want to hurt yourself or someone else? Patient reports no desire to harm self or others. Onset of symptoms was March 10, 2024. 11:30 Method Of Arrival: Wheelchair ll1 11:30 Acuity: RUDY 2 ll1 Triage Assessment: 11:30 General: Appears uncomfortable, Behavior is calm, cooperative, appropriate for age, ll1 Reports fatigue for. Neuro: Reports weakness low BP. Historical: - Allergies: 11:29 No Known Allergies; ll1 - PMHx: 11:29 Hypertensive disorder; skin cancer; History of urinary tract infection; ll1 - PSHx: 11:29 Skin cancer removal; ll1 - Immunization history:: Adult Immunizations up to date. - Infectious Disease History:: Denies. - Social history:: Smoking status: Patient denies any tobacco usage or history of. Screenin:34 [facility] ED Fall Risk Assessment (Adult) History of falling in the last 3 months, ph including since admission No falls in past 3 months (0 pts) Confusion or Disorientation No (0 pts) Intoxicated or Sedated No (0 pts) Impaired Gait Yes (1 pt) Mobility Assist Device Used Yes (1 pt) Altered Elimination No (0 pt) Score/Fall Risk Level 0 - 2 = Low Risk Oriented to surroundings, Maintained a safe environment, Hourly rounding (assess needs \T\ fall precautionary measures) done. Abuse screen: Denies threats or abuse. Denies injuries from another. Nutritional screening: No deficits noted. Tuberculosis screening: No symptoms or risk factors identified. Assessment: 12:00 General: Appears in no apparent distress. Behavior is calm, cooperative. Pain: Denies ph pain. Neuro: Level of Consciousness is awake, alert, obeys commands, Oriented to person, place, time, situation, Reports weakness ,generalized. Cardiovascular: Capillary refill < 3 seconds in bilateral fingers Patient's skin is warm and dry. Rhythm is sinus bradycardia. Respiratory: Airway is patent Respiratory effort is even, unlabored, Respiratory pattern is regular, symmetrical. GI: No signs and/or symptoms were reported involving the gastrointestinal system. : Leo in place to gravity drainage Urine is clear. Derm: Skin is pink, warm \T\ dry. 13:30 Reassessment: Patient appears in no apparent distress at this time. Patient and/or ph family updated on plan of care and expected duration. Pain level reassessed. Patient is alert, oriented x 3, equal unlabored respirations, skin warm/dry/pink. 17:28 Reassessment: Patient appears in no apparent distress at this time. Patient and/or ph family updated on plan of care and expected duration. Pain level reassessed. Patient is alert, oriented x 3, equal unlabored respirations, skin warm/dry/pink. Vital Signs: 11:30 BP 87 / 50; Pulse 56; Resp 17; Temp 97.6; Pulse Ox 96% ; Weight 70.31 kg; Height 5 ft. ll1 8 in. ; Pain 0/10; 12:57 BP 97 / 63; Pulse 58; Resp 18; Pulse Ox 96% on R/A; ph 14:28 BP 110 / 65; Pulse 51; Resp 18; Pulse Ox 98% on R/A; ph 15:32 BP 113 / 74; Pulse 57; Resp 18; Pulse Ox 98% on R/A; ph 16:30 BP 124 / 65; Pulse 57; Resp 18; Pulse Ox 99% on R/A; ph 17:30 BP 118 / 73; Pulse 59; Resp 16; Pulse Ox 97% ; ph 11:30 Body Mass Index 23.57 (70.31 kg, 172.72 cm) ll1 11:30 Pain Scale: Adult ll1 Vitals: 12:57 Cardiac Rhythm Assessment Sinus giorgi. ph ED Course: 11:25 Patient arrived in ED. ra3 11:29 Arm band placed on Patient placed in an exam room, on a stretcher. ll1 11:31 Triage completed. ll1 11:33 Cheryl Obregon, RN is Primary Nurse. ph 11:35 Lindsay Vega PA-C is PHCP. sb4 11:35 Ted Knox MD is Attending Physician. sb4 12:12 Patient has correct armband on for positive identification. Bed in low position. Call ph light in reach. Side rails up X2. Client placed on continuous cardiac and pulse oximetry monitoring. NIBP monitoring applied. monitoring specialist on. Door closed. Noise minimized. Warm blanket given. Pillow given. 12:12 Troponin HS Sent. ph 12:12 PT-INR Sent. ph 12:12 NT PRO-BNP Sent. ph 12:12 Magnesium Sent. ph 12:12 LFT's Sent. ph 12:12 CBC with Diff Sent. ph 12:12 Basic Metabolic Panel Sent. ph 12:12 SARS RAPID Sent. ph 12:12 Initial lab(s) drawn, by me, sent to lab. EKG done, by ED staff, reviewed by Lindsay Vega PA-C COVID swab sent to lab. Flu and/or RSV swab sent to lab. Inserted saline lock: 20 gauge in right antecubital area, using aseptic technique. Blood collected. Flushed with 10 mL NS. 12:30 XRAY Chest (1 view) In Process Unspecified. EDMS 15:55 Leo cath removed intact, balloon deflated. ph 16:02 Leo cath inserted, using sterile technique, 20 Fr., by me, balloon inflated, to ph gravity drainage, urine specimen collected. 16:35 Christina Rhoades MD is Hospitalizing Provider. sb4 17:29 No provider procedures requiring assistance completed. Patient admitted, IV remains in ph place. 18:11 1811 CM met with at the bedside in the ED exam room. Patient identified by ane name and . Demographic sheet confirmed. Patient states he lives with his son Neymar and daughter in law Peri in a single story home. He reports that prior to admission, he performs ADLs independently. No DME or home oxygen in the home. He receives OT, PT, and catheter care/nurse visit services through [facility]. His PCP is Dr. Carson and his urologist is Dr. Hayes in [place], [place]. MPOA is in place. states his preferred plan is to return home upon discharge. he reports that either Peri or Neymar will transport him home when he is discharged. CM team will continue to follow and coordinate care during this hospital stay. 19:54 Provided Education on: need for admission. bm8 Administered Medications: 12:36 Drug: NS 0.9% IV 1000 ml IV at 1000 ml once; to be given as a bolus over 60 minutes ph Route: IV; Rate: 1000 ml; Site: right antecubital; 13:40 Follow up: Response: No adverse reaction; IV Status: Completed infusion; IV Intake: ph 1000ml Medication: 11:34 VIS not applicable for this client. ph Intake: 13:40 IV: 1000ml; Total: 1000ml. ph Outcome: 16:35 Decision to Hospitalize by Provider. sb4 19:54 Admitted to Med/surg accompanied by [facility], room 202, with chart, bm8 19:54 Condition: stable 19:54 Instructed on the need for admit, Demonstrated understanding of instructions, follow-up care, 19:55 Patient left the ED. 8 Signatures: Dispatcher [employer] EDMS Cheryl Obregon, RN Gerber Raymundo ph RN RN ll1 Lindsay Vega, PA-C PA-C sb4 Lavern Ramsay ra3 Mikel Lam RN RN bm8 Cuca Potts RN RN ane Corrections: (The following items were deleted from the chart) 15:29 12:12 Influenza Screen (A \T\ B)+BA.LAB.BRZ drawn and sent. EDIA
--- NOTE | 2024-03-10 16:36 | EDPHYS ---
Physician Documentation [facility] Name: Allen Swanson Age: 79 yrs Sex: Male : 1945 Arrival Date: 03/10/2024 Time: 11:23 Bed 2 Private MD: ED Physician Ted Knox HPI: 03/10 12:50 This 79 yrs old Male presents to ER via Wheelchair with complaints of Low Blood sb4 pressure and weakness. 12:51 Patient states that he has been feeling weak since yesterday. States that he was sb4 recently diagnosed with dementia. He checked his blood pressure this morning and noted to be 96/55 but still took his amlodipine. They called his primary care and instructed him to come to the ED. Patient states that he feels weak and fatigued but denies any other symptoms. He does have an indwelling Echavarria catheter that he says was replaced 2 days ago and [facility]. Historical: - Allergies: 11:29 No Known Allergies; ll1 - PMHx: 11:29 Hypertensive disorder; skin cancer; History of urinary tract infection; ll1 - PSHx: 11:29 Skin cancer removal; ll1 - Immunization history:: Adult Immunizations up to date. - Infectious Disease History:: Denies. - Social history:: Smoking status: Patient denies any tobacco usage or history of. ROS: 12:51 Cardiovascular: Negative for chest pain, palpitations, and edema, sb4 12:51 Constitutional: Positive for fatigue, malaise, 12:51 Neuro: Positive for weakness, 12:51 All other systems are negative, Exam: 12:51 Head/Face: Normocephalic, atraumatic. Eyes: Extra-ocular motions intact. Periorbital sb4 areas with no swelling, redness, or edema. ENT: Mucous membranes moist. Cardiovascular: Regular rate and rhythm with a normal S1 and S2. Respiratory: No increased work of breathing, no retractions or nasal flaring. Abdomen/GI: Soft, non-tender, no distension. Skin: Warm, dry with normal turgor. Normal color with no rashes, no lesions, and no evidence of cellulitis. 12:51 Constitutional: The patient appears in no acute distress, alert, awake, 12:51 : a echavarria is noted, urine is clear, Vital Signs: 11:30 BP 87 / 50; Pulse 56; Resp 17; Temp 97.6; Pulse Ox 96% ; Weight 70.31 kg; Height 5 ft. ll1 8 in. ; Pain 0/10; 12:57 BP 97 / 63; Pulse 58; Resp 18; Pulse Ox 96% on R/A; ph 14:28 BP 110 / 65; Pulse 51; Resp 18; Pulse Ox 98% on R/A; ph 15:32 BP 113 / 74; Pulse 57; Resp 18; Pulse Ox 98% on R/A; ph 16:30 BP 124 / 65; Pulse 57; Resp 18; Pulse Ox 99% on R/A; ph 17:30 BP 118 / 73; Pulse 59; Resp 16; Pulse Ox 97% ; ph 11:30 Body Mass Index 23.57 (70.31 kg, 172.72 cm) ll1 11:30 Pain Scale: Adult ll1 MDM: 11:35 Medical Screening Exam initiated sb4 16:34 Data reviewed: vital signs, nurses notes, lab test result(s), EKG, radiologic studies, sb4 and as a result, I will admit patient. Consideration of Admission/Observation Patient was admitted/placed on observation. Counseling: I had a detailed discussion with the patient and/or guardian regarding the historical points, exam findings, and any diagnostic results supporting the discharge/admit diagnosis, lab results, radiology results, the need for further work-up and treatment in the hospital. 03/10 11:48 Order name: Basic Metabolic Panel; Complete Time: 12:46 sb4 03/10 11:48 Order name: CBC with Diff; Complete Time: 12:25 sb4 03/10 11:48 Order name: LFT's; Complete Time: 12:46 sb4 03/10 11:48 Order name: Magnesium; Complete Time: 12:46 sb4 03/10 11:48 Order name: NT PRO-BNP; Complete Time: 12:46 sb4 03/10 11:48 Order name: PT-INR; Complete Time: 12:46 sb4 03/10 11:48 Order name: Troponin HS; Complete Time: 12:46 sb4 03/10 11:48 Order name: SARS RAPID; Complete Time: 14:43 sb4 03/10 14:45 Order name: Influenza Screen (A ; Complete Time: 14:48 EDMS 03/10 16:07 Order name: Urine Microscopic Only; Complete Time: 16:16 EDMS 03/10 16:17 Order name: Urine Culture EDMS 03/10 17:25 Order name: CBC with Automated Diff EDMS 03/10 17:25 Order name: CBC with Automated Diff EDMS 03/10 17:25 Order name: CBC with Automated Diff EDMS 03/10 17:25 Order name: CBC with Automated Diff EDMS 03/10 17:25 Order name: CBC with Automated Diff EDMS 03/10 17:25 Order name: Comprehensive Metabolic Panel EDMS 03/10 17:25 Order name: Comprehensive Metabolic Panel EDMS 03/10 17:25 Order name: Comprehensive Metabolic Panel EDMS 03/10 17:25 Order name: Comprehensive Metabolic Panel EDMS 03/10 17:25 Order name: Comprehensive Metabolic Panel EDMS 03/10 17:25 Order name: Lipid Profile EDMS 03/10 17:25 Order name: Lipid Profile EDMS 03/10 17:25 Order name: Magnesium EDMS 03/10 17:25 Order name: Magnesium EDMS 03/10 17:25 Order name: Magnesium EDMS 03/10 17:25 Order name: Magnesium EDMS 03/10 17:25 Order name: Magnesium EDMS 03/10 17:25 Order name: Phosphorus EDMS 03/10 17:25 Order name: Phosphorus EDMS 03/10 17:25 Order name: Phosphorus EDMS 03/10 17:25 Order name: Phosphorus EDMS 03/10 17:25 Order name: Phosphorus EDMS 03/10 17:25 Order name: Blood Culture EDMS 03/10 11:48 Order name: XRAY Chest (1 view); Complete Time: 12:46 sb4 03/10 17:25 Order name: CONS Physician Consult EDMS 03/10 11:48 Order name: Cardiac monitoring; Complete Time: 12:11 sb4 03/10 11:48 Order name: EKG - Nurse/Tech; Complete Time: 12:11 sb4 03/10 11:48 Order name: IV Saline Lock; Complete Time: 12:12 sb4 03/10 11:48 Order name: Labs collected and sent; Complete Time: 12:12 sb4 03/10 11:48 Order name: O2 Per Protocol; Complete Time: 11:49 sb4 03/10 11:48 Order name: O2 Sat Monitoring; Complete Time: 11:49 sb4 EC:11 Rate is 56 beats/min. Rhythm is regular, Sinus bradycardia with Right bundle branch sb4 block. AL interval is normal at 162 msec. QRS interval is normal at 140 msec. QT interval is normal at 462 msec. Clinical impression: No evidence of ischemia. Interpreted by me. Reviewed by me. Administered Medications: 12:36 Drug: NS 0.9% IV 1000 ml IV at 1000 ml once; to be given as a bolus over 60 minutes ph Route: IV; Rate: 1000 ml; Site: right antecubital; 13:40 Follow up: Response: No adverse reaction; IV Status: Completed infusion; IV Intake: ph 1000ml Disposition Summary: 03/10/24 16:35 Hospitalization Ordered Notes: Hospitalization Status: Inpatient Admission sb4 Provider: Christina Rhoades [facility] sb4 Condition: Fair sb4 Problem: new sb4 Symptoms: are unchanged sb4 Bed/Room Type: Standard sb4 Room Assignment: (03/10/24 17:40) bd Diagnosis - UTI/ Urinary tract infection, site not specified sb4 - Weakness sb4 - Hypotension, unspecified sb4 - Dehydration sb4 Forms: - Medication Reconciliation Form sb4 - SBAR form sb4 - Leadership Thank You Letter sb4 Addendum: 03/14/2024 19:59 Co-signature as Attending Physician, Ted Knox MD I reviewed the patient's care r t provided by the Advanced Practice Provider and agree with the diagnosis and treatment plan. Signatures: Dispatcher [employer] EDWY Anai Forrest Patricia, RN RN Gerber Kinney RN RN ll1 Lindsay Vega, PA-C PA-C sb4 Ted Knox MD MD rt Corrections: (The following items were deleted from the chart) 03/10 11:49 11:48 BASIC METABOLIC PANEL+C.LAB.BRZ ordered. EDWY EDMS 11:49 11:48 CBC+H.LAB.BRZ ordered. EDMS EDMS 11:49 11:48 HEPATIC FUNCTION+C.LAB.BRZ ordered. EDMS EDMS 11:49 11:48 MAGNESIUM+C.LAB.BRZ ordered. EDMS EDMS 11:49 11:48 PROBNP+C.LAB.BRZ ordered. EDMS EDMS 11:49 11:48 PROTIME (+INR)+COAG.LAB.BRZ ordered. EDMS EDMS 11:49 11:48 Troponin High Sensitivity+C.LAB.BRZ ordered. EDMS EDMS 11:49 11:48 SARS-COV-2 Antigen Rapid+I.LAB.BRZ ordered. EDMS EDMS 11:49 11:49 Chest Single View+RAD.RAD.BRZ ordered. EDMS EDMS 15:29 11:48 Influenza Screen (A \T\ B)+BA.LAB.BRZ ordered. EDMS EDMS 16:07 11:48 Urinalysis W/Microscopic+U.LAB.BRZ ordered. EDMS EDMS 17:40 16:35 sb4 bd
[2024-03-10] MEDS ORDERED: ACETAMINOPHEN 500 MG TAB PO PRN (17:15)
[2024-03-10] MEDS ORDERED: SODIUM CHLORIDE 0.9% 10ML INJ IV PRN (17:26)
--- NOTE | 2024-03-10 17:31 | P.HP ---
Certification for Inpatient Patient admitted to: Inpatient With expected LOS: >2 Midnights <Karlene Prado - Last Filed: 03/10/24 17:26> Patient History Date of Service: 03/10/24 Primary Care Provider: Alli Reason for admission: UTI-failed outpt abx with hypotension History of Present Illness: Sky is a 79-year-old male with a past medical history of hypertension, recu rrent UTI with BPH, chronic indwelling Echavarria, and dementia. He has been seeing Dr. Whitfield for LUTS symptoms. Last Sunday he had an appointment that was canceled and thus delayed Echavarria replacement. Last p.m. Mr. Swanson felt weak, had chills, and felt like his Echavarria was not draining. Echavarria was replaced in the emergency department and irrigated of multiple clots. Urine was sent for culture. When Mr. Swanson arrived he had some hypotension and was given a normal saline bolus x 1000 mL. Blood pressure on admission 118/73. Patient is alert and oriented. He will be admitted for LUTS with failed outpatient therapy. Patient requests consult with Dr. Whitfield. 1L NS bolus given in ED BP 87 / 50; Pulse 56; Resp 17; Temp 97.6; Pulse Ox 96% ; Weight 70.31 kg; Height 5 ft. ll1 BP 97 / 63; Pulse 58; Resp 18; Pulse Ox 96% on R/A; BP 110 / 65; Pulse 51; Resp 18; Pulse Ox 98% on R/A; Labs: WBC 8.9 with neutrophils of 75.7%, H/H 11.8/36.3, electrolytes unremarkable except a potassium of 3.3 (magnesium 1.8). Current creatinine 1.02 with a BUN of 32 and a GFR of 75. BNP 1052 with a T. bili of 1.1, troponin 10.2, flu A, B, SARS negative Urine: U WBC greater than 50, U RBC greater than 50, reflex for culture, urine WBC clumps Home medications list reviewed: Yes - Past Medical/Surgical History Has patient received pneumonia vaccine in the past: Yes Diabetic: No -: Essential hypertension -: BPH -: History of urinary retention -: Skin graft to scalp -: cataract removal Psychosocial/ Personal History: Lives at his Son's home - Peri BOCANEGRA, is his POAH - Family History Family History: Reviewed- Non-Contributory - Family History Father -: Cancer - Social History Smoking Status: Unknown if ever smoked Smoking therapy provided: No Patient receptive to therapy: No Alcohol use: No CD- Drugs: No Caffeine use: Yes Place of Residence: Home <Karlene Prado - Last Filed: 03/10/24 17:26> Date of Service: 03/10/24 <RhoadesChristina - Last Filed: 03/25/24 01:36> Allergies No Known Allergies Allergy (Verified 11/19/23 11:31) Home Medications: Ascorbic Acid [Vitamin C*] 500 mg PO M,W,F 11/16/23 Pantoprazole [Protonix Tab*] 40 mg PO DAILY 11/16/23 Sucralfate [Carafate*] 1 gm PO DAILY 11/16/23 Tamsulosin [Flomax*] 0.4 mg PO BEDTIME 01/05/24 Ciprofloxacin HCl [Cipro] 500 mg PO BID 10 Days #20 tab 01/07/24 Ciprofloxacin HCl [Cipro 500 MG Tablet] 500 mg PO BID #28 tab 03/13/24 Review of Systems 10-point ROS is otherwise unremarkable General: Chills, Weakness, Malaise Eyes: Unremarkable ENT: Unremarkable Respiratory: Unremarkable Cardiovascular: Unremarkable Gastrointestinal: Unremarkable Genitourinary: Hematuria, Retention, Other (urinary catheter clotted, began hurting/retention on Sunday (3d ago)) Musculoskeletal: Unremarkable Integumentary: Unremarkable Neurological: Unremarkable Lymphatics: Unremarkable <Karlene Prado - Last Filed: 03/10/24 17:26> Physical Examination - Vital Signs Blood Pressure: 118/73 Pulse: 58 Pulse Ox (%): 99 (RA) - Physical Exam General: Alert, In no apparent distress, Oriented x3, Cooperative HEENT: Atraumatic, Normocephalic Neck: Supple Respiratory: Normal air movement Cardiovascular: Regular rate/rhythm (Tahir with Right BBB) Capillary refill: <2 Seconds Gastrointestinal: Soft and benign Musculoskeletal: No clubbing, No swelling Integumentary: No rashes Neurological: Normal speech, Normal tone, Normal affect Lymphatics: No axilla or inguinal lymphadenopathy Urinary: Echavarria catheter (changed in ED, irrigated with some clots present) External genitalia: Deferred Rectal: Deferred - Studies Laboratory Data (last 24 hrs) 03/10/24 03/10/24 03/10/24 12:05 12:05 12:05 WBC 8.90 Hgb 11.8 L Hct 36.3 L Plt Count 118 L PT 13.6 H INR 1.22 Sodium 140 Potassium 3.3 L BUN 32 H Creatinine 1.02 Glucose 136 H Magnesium 1.8 Total Bilirubin 1.1 H AST 43 H ALT 31 Alkaline Phosphatase 75 Microbiology Data (last 24 hrs): 03/10/24 12:05 Nasopharnyx Influenza Type A Antigen Screen - Final 03/10/24 12:05 Nasopharnyx Influenza Type B Antigen Screen - Final <Karlene Prado - Last Filed: 03/10/24 17:26> Assessment and Plan - Plan LUTS with failed outpt therapy and hypotension Indwelling echavarria for BPH/hematuria Blood cx/Urine culture Consult Dr. Nahid Barnes 1gm IVPB q 12h Hold BP meds 2nd to hypotension Gentle IVF Tamsulosin 0.4mg po at HS PT evaluation hypokalemia trend and replete Dementia postpone LP donepezil 5mg po daily VTE/GI prophylaxis lovenox/protonix - Advance Directives Does patient have a Living Will: No Does patient have a Durable POA for Healthcare: Yes Critical Care: No <Karlene Prado - Last Filed: 03/10/24 17:26> Date of Service: 03/10/24 Chart has been reviewed. Events of the last 24 hours have been noted. Case discussed with PHYLLIS. I performed a substantial part of the MDM during this patient's care today. I personally made or approved the documented management plan and acknowledge its risk of complications. I agree with the findings and documentation provided in the PHYLLIS's notes <Christina Rhoades - Last Filed: 03/25/24 01:36>
[2024-03-10] MEDS: NA CHLORIDE 0.9% 1,000 ML IV SCH (20:34)
[2024-03-10] MEDS: DONEPEZIL HCL 5 MG TAB PO SCH (20:38)
[2024-03-10] MEDS: SUCRALFATE 1 GM TABLET PO SCH (20:38)
[2024-03-10] MEDS: ENOXAPARIN 40 MG/0.4 ML SQ SCH (20:39)
[2024-03-10] MEDS: TAMSULOSIN 0.4 MG SR CAP PO SCH (20:39)
[2024-03-10] MEDS: Meropenem 1,000 MG in NA CHLORIDE 0.9% 100 ML IV SCH (20:45)
[2024-03-10 21:59] VITALS: BMI 23.6
[2024-03-11 05:19] LABS: Absolute Eosinophils 0.1 K/uL (0-0.5); Absolute Lymphocytes (CBC) 1.1 K/uL (0.7-4.9); Absolute Monocytes 0.7 K/uL (0.1-1.3); Basophils % 0.6 % (0-1.3); Eosinophils % 1.6 % (0-4.4); Hematocrit 32.1 % (39.6-49.0); Hemoglobin 10.9 g/dL (13.6-17.9); Lymphocytes % 18.3 % (15.3-44.8); MCH 28.5 pg (27.0-35.0); MCHC 34.1 g/dL (32.0-36.0); MCV 83.5 fL (80-100); MPV 8.6 fL (7.6-11.3); Monocytes % 12.2 % (3.3-12.3); Neutrophils % 67.3 % (41.7-73.7); Platelets 115 thou/uL (152-406); RBC Red Blood Cell Count 3.84 M/uL (4.33-5.43); Red Cell Distribution Width 16.1 % (12.1-15.2)
[2024-03-11 05:45] LABS: Albumin 2.6 g/dL (3.4-5.0); Albumin/Globulin Ratio 0.8 (1.1-1.8); Anion Gap 6.4 mEq/L (5.0-15.0); Bilirubin Total 0.5 mg/dL (0.2-1.0); Globulin 3.3 g/dL (2.3-3.5); Magnesium 1.6 mg/dL (1.6-2.4); Phosphorus 2.6 mg/dL (2.5-4.9); Potassium 3.4 mEq/L (3.5-5.1); Protein, Total 5.9 g/dL (6.4-8.2)
[2024-03-11] MEDS: MAGNESIUM SULFATE 1 gm IVPB 1 GM/100 ML BAG IV ONE (06:41)
[2024-03-11] MEDS: POTASSIUM CL SA 10 MEQ TAB PO ONE (08:17)
[2024-03-11] MEDS: FE SULF/FA/VIT B COMP & C TAB PO SCH (08:18)
[2024-03-11] MEDS: PANTOPRAZOLE 40 MG INJ IVP SCH (08:18)
[2024-03-11] MEDS ORDERED: AMLODIPINE 5 MG TAB PO SCH (09:00)
[2024-03-11] MEDS ORDERED: VALSARTAN 160 MG TAB PO SCH (09:00)
--- NOTE | 2024-03-11 12:18 | P.PN ---
Subjective Date of Service: 03/11/24 Primary Care Provider: Alli Chief Complaint: UTI-failed outpt abx with hypotension Subjective: Improving (no fever/chills overnight, urine clearing) <Karlene Prado - Last Filed: 03/11/24 12:14> Date of Service: 03/11/24 <Christina Rhoades - Last Filed: 03/25/24 01:37> Review of Systems 10-point ROS is otherwise unremarkable General: Unremarkable Eyes: Unremarkable ENT: Unremarkable Respiratory: Unremarkable Cardiovascular: Unremarkable Gastrointestinal: Unremarkable Genitourinary: Unremarkable Musculoskeletal: Unremarkable Integumentary: Unremarkable Neurological: Unremarkable Lymphatics: Unremarkable <Karlene Prado Lasha - Last Filed: 03/11/24 12:14> Physical Examination - Vital Signs Temperature: 97.9 F Blood Pressure: 130/77 Pulse: 72 Respirations: 20 Pulse Ox (%): 96 - Physical Exam General: Alert, In no apparent distress, Oriented x3 HEENT: Atraumatic, Normocephalic Neck: Supple Respiratory: Normal air movement Cardiovascular: Normal pulses, Regular rate/rhythm Capillary refill: <2 Seconds Gastrointestinal: Normal bowel sounds, Soft and benign Musculoskeletal: No clubbing Integumentary: No rashes Neurological: Normal speech, Normal tone, Normal affect Lymphatics: No axilla or inguinal lymphadenopathy Urinary: Echavarria catheter (no hematuria today) External genitalia: Deferred Rectal: Deferred - Studies Laboratory Data (last 24 hrs) 03/10/24 03/10/24 03/10/24 12:05 12:05 12:05 WBC 8.90 Hgb 11.8 L Hct 36.3 L Plt Count 118 L PT 13.6 H INR 1.22 Sodium 140 Potassium 3.3 L BUN 32 H Creatinine 1.02 Glucose 136 H Magnesium 1.8 Total Bilirubin 1.1 H AST 43 H ALT 31 Alkaline Phosphatase 75 Microbiology Data (last 24 hrs): 03/10/24 12:05 Nasopharnyx Influenza Type A Antigen Screen - Final 03/10/24 12:05 Nasopharnyx Influenza Type B Antigen Screen - Final <Karlene Prado - Last Filed: 03/11/24 12:14> Assessment And Plan - Plan LUTS with failed outpt therapy and hypotension Indwelling echavarria for BPH/hematuria Blood cx/Urine culture Consult Dr. Nahid Merrem 1gm IVPB q 12h Hold BP meds 2nd to hypotension Gentle IVF Tamsulosin 0.4mg po at HS PT evaluation 03/11/24 awaiting cultures hypokalemia trend and replete 03/11/24 creat 1.02 to .77 K 3.4 -replete Dementia postpone LP donepezil 5mg po daily VTE/GI prophylaxis lovenox/protonix Discharge Plan: Home Plan to discharge in: 24 Hours - Code Status/Comfort Care Code Status Assessed: Yes (full) Critical Care: No Time Spent Managing PTS Care (In Minutes): 25 <Karlene Prado - Last Filed: 03/11/24 12:14> Date of Service: 03/11/24 Chart has been reviewed. Events of the last 24 hours have been noted. Case discussed with PHYLLIS. I performed a substantial part of the MDM during this patient's care today. I personally made or approved the documented management plan and acknowledge its risk of complications. I agree with the findings and documentation provided in the PHYLLIS's notes <Christina Rhoades - Last Filed: 03/25/24 01:37>
[2024-03-12 05:35] LABS: Absolute Eosinophils 0.1 K/uL (0-0.5); Absolute Lymphocytes (CBC) 1.1 K/uL (0.7-4.9); Absolute Monocytes 0.5 K/uL (0.1-1.3); Absolute Neutrophil 3.2 K/uL (1.8-8.0); Basophils % 0.6 % (0-1.3); Eosinophils % 2.7 % (0-4.4); Hematocrit 31.8 % (39.6-49.0); Hemoglobin 10.6 g/dL (13.6-17.9); Lymphocytes % 22.4 % (15.3-44.8); MCH 28.1 pg (27.0-35.0); MCHC 33.5 g/dL (32.0-36.0); MCV 83.8 fL (80-100); MPV 9.1 fL (7.6-11.3); Monocytes % 10.1 % (3.3-12.3); Neutrophils % 64.2 % (41.7-73.7); Platelets 119 thou/uL (152-406); RBC Red Blood Cell Count 3.79 M/uL (4.33-5.43); Red Cell Distribution Width 15.8 % (12.1-15.2)
[2024-03-12 05:54] LABS: Albumin 2.5 g/dL (3.4-5.0); Albumin/Globulin Ratio 0.8 (1.1-1.8); Anion Gap 6.6 mEq/L (5.0-15.0); Bilirubin Total 0.7 mg/dL (0.2-1.0); Globulin 3.3 g/dL (2.3-3.5); Magnesium 1.9 mg/dL (1.6-2.4); Phosphorus 2.3 mg/dL (2.5-4.9); Potassium 3.6 mEq/L (3.5-5.1); Protein, Total 5.8 g/dL (6.4-8.2)
[2024-03-12] MEDS: POTASS/SODIUM PHOSPHATE 1 PKT POWD.PACK PO SCH (06:42)
[2024-03-12] MEDS: POTASSIUM CL SA 10 MEQ TAB PO ONE (07:52)
--- NOTE | 2024-03-12 09:35 | P.PN ---
Date of Service: 03/12/24 Subjective Date of Service: 03/12/24 Primary Care Provider: Alli Chief Complaint: UTI-failed outpt abx with hypotension Subjective: Improving (no fever/chills overnight, urine clearing) Review of Systems 10-point ROS is otherwise unremarkable General: Unremarkable Eyes: Unremarkable ENT: Unremarkable Respiratory: Unremarkable Cardiovascular: Unremarkable Gastrointestinal: Unremarkable Genitourinary: Unremarkable Musculoskeletal: Unremarkable Integumentary: Unremarkable Neurological: Unremarkable Lymphatics: Unremarkable Physical Examination - Vital Signs reviewed - Physical Exam General: Alert, In no apparent distress, Oriented x3 HEENT: Atraumatic, Normocephalic Neck: Supple Respiratory: Normal air movement Cardiovascular: Normal pulses, Regular rate/rhythm Capillary refill: <2 Seconds Gastrointestinal: Normal bowel sounds, Soft and benign Musculoskeletal: No clubbing Integumentary: No rashes Neurological: Normal speech, Normal tone, Normal affect Lymphatics: No axilla or inguinal lymphadenopathy Urinary: Echavarria catheter (no hematuria today) External genitalia: Deferred Rectal: Deferred - Studies Laboratory Data (last 24 hrs) 03/10/24 03/10/24 03/10/24 12:05 12:05 12:05 WBC 8.90 Hgb 11.8 L Hct 36.3 L Plt Count 118 L PT 13.6 H INR 1.22 Sodium 140 Potassium 3.3 L BUN 32 H Creatinine 1.02 Glucose 136 H Magnesium 1.8 Total Bilirubin 1.1 H AST 43 H ALT 31 Alkaline Phosphatase 75 Microbiology Data (last 24 hrs): 03/10/24 12:05 Nasopharnyx Influenza Type A Antigen Screen - Final 03/10/24 12:05 Nasopharnyx Influenza Type B Antigen Screen - Final Assessment And Plan - Plan LUTS with failed outpt therapy and hypotension Indwelling echavarria for BPH/hematuria Blood cx/Urine culture Consult Dr. Whitfield Merrem 1gm IVPB q 12h Hold BP meds 2nd to hypotension Gentle IVF Tamsulosin 0.4mg po at HS PT evaluation 03/11/24 awaiting cultures 03/12/24 prelim - >10,000 Mixed poly hypokalemia trend and replete 03/11/24 creat 1.02 to .77 K 3.4 -replete 03/12/24 K 3.6 - continue to monitor Dementia postpone LP donepezil 5mg po daily VTE/GI prophylaxis lovenox/protonix Discharge Plan: Home Plan to discharge in: 24 Hours - Code Status/Comfort Care Code Status Assessed: Yes (full) Critical Care: No Time Spent Managing PTS Care (In Minutes): 25 <Karlene Prado - Last Filed: 03/12/24 09:35> Pt seen and examined. I agree with the note by the REGISTERED RESPIRATORY TECHNICIAN. Will continue iv merrem and f/u urine cx. Consulted Urology. Will continue donepezil and supportive care for Dementia. Will monitor platelet count. <Theo Rodrigues - Last Filed: 03/12/24 14:22>
--- NOTE | 2024-03-12 19:42 | CON ---
History Of Present Illness: This is a 79-year-old male, I was consulted for urinary tract infection secondary to gram-negative rods and 4+ staph in the urine. Blood cultures being negative. The patie nt initially came to hospital with the significant past medical history of hypertension, recurrent ur inary tract infection with the benign prostatic hypertrophy, chronic indwelling Leo catheter, and d ementia. The patient has been seeing the urologist for lower urinary tract symptoms. The patient quezada d an appointment with his urologist and was canceled and thus delayed the Leo replacement. Patient 's symptoms started with the feeling of weakness, chills, and Leo was not draining properly. He wa s admitted to emergency room with multiple clots were irrigated through the Leo. The patient feels much better today. Denies any headache, nausea, vomiting, chest pain, abdominal pain, constipation, or diarrhea. Currently, patient is on meropenem. See MARs for other medications. Past Medical History: As per HPI. Social History: Nonsmoker. Nondrinker. Family History: Noncontributory. Medications: Meropenem. Allergies: NO KNOWN DRUG ALLERGIES. Review of Systems: A 10-point review was performed. Physical Examination: General: This is a 79-year-old male, lying in bed, not in any acute cardiopulmonary distress. Vital Signs: Temperature 98.6, pulse 76, respirations 18, blood pressure 140/88. HEENT: Unremarkable. Neck: Supple. Lungs: Basal crackles. Heart: S1, S2. Regular. Abdomen: Soft, nontender. Bowel sounds present. Extremities: No edema. : Leo catheter in place. Urine color is light yellow with no cloudiness or no sediment noted. Laboratory Data: Shows WBC 5 down from 8.9, hemoglobin 10.6, platelets are 119. Chemistry shows BUN of 13, creatinine 0.6, albumin level is 2.5. Assessment And Plan: 79-year-old male with urinary tract infection and sepsis, coming in because of obstructive Leo catheter with clot formation, currently being treated with meropenem. Urine cultur es are growing gram-negative rods 3+ and Staph coagulase positive 4+. We will recommend also to add gram-positive coverage by starting patient on vancomycin 1 g every 12 hours, pending culture results. Anemia of chronic disease. Thrombocytopenia. Moderate protein-calorie malnourishment. Continue s upportive care and antibiotic. We will follow the patient as needed. Thank you for consult. GUMARO/PHILLIP Voice ID: [id number] Report ID: [id number]
[2024-03-12 22:14] VITALS: O2SAT 96
[2024-03-13 05:32] LABS: Absolute Eosinophils 0.2 K/uL (0-0.5); Absolute Lymphocytes (CBC) 1.2 K/uL (0.7-4.9); Absolute Monocytes 0.6 K/uL (0.1-1.3); Absolute Neutrophil 2.9 K/uL (1.8-8.0); Basophils % 0.9 % (0-1.3); Eosinophils % 3.5 % (0-4.4); Hematocrit 32.3 % (39.6-49.0); Hemoglobin 10.9 g/dL (13.6-17.9); Lymphocytes % 24.6 % (15.3-44.8); MCH 28.4 pg (27.0-35.0); MCHC 33.8 g/dL (32.0-36.0); MCV 84.2 fL (80-100); MPV 8.7 fL (7.6-11.3); Monocytes % 11.7 % (3.3-12.3); Neutrophils % 59.3 % (41.7-73.7); Platelets 143 thou/uL (152-406); RBC Red Blood Cell Count 3.84 M/uL (4.33-5.43); Red Cell Distribution Width 15.4 % (12.1-15.2)
[2024-03-13 05:59] LABS: Albumin 2.6 g/dL (3.4-5.0); Albumin/Globulin Ratio 0.7 (1.1-1.8); Anion Gap 8.7 mEq/L (5.0-15.0); Bilirubin Total 0.7 mg/dL (0.2-1.0); Globulin 3.7 g/dL (2.3-3.5); Magnesium 1.9 mg/dL (1.6-2.4); Phosphorus 2.7 mg/dL (2.5-4.9); Potassium 3.7 mEq/L (3.5-5.1); Protein, Total 6.3 g/dL (6.4-8.2)
[2024-03-13] MEDS: POTASSIUM CL SA 10 MEQ TAB PO ONE (07:54)
[2024-03-13] MEDS: CIPROFLOXACIN 400mg IV 400 MG/200 ML BAG IV SCH (08:38)
--- NOTE | 2024-03-13 09:26 | P.DS ---
Admission Date: 03/10/24 Discharge Date: 03/13/24 Primary Care Provider: Alli Reason for Admission: UTI-failed outpt abx with hypotension Brief History of Present Illness: Sky is a 79-year-old male with a past medical history of hypertension, recurrent UTI with BPH, chronic indwelling Leo, and dementia. He has been seeing Dr. Whitfield for LUTS symptoms. Last Sunday he had an appointment that was canceled and thus delayed Leo replacement. Last p.m. Mr. Swanson felt weak, had chills, and felt like his Leo was not draining. Leo was replaced in the emergency department and irrigated of multiple clots. Urine was sent for culture. When Mr. Swanson arrived he had some hypotension and was given a normal saline bolus x 1000 mL. Blood pressure on admission 118/73. Patient is alert and oriented. He will be admitted for LUTS with failed outpatient therapy. Patient requests consult with Dr. Whitfield. 1L NS bolus given in ED BP 87 / 50; Pulse 56; Resp 17; Temp 97.6; Pulse Ox 96% ; Weight 70.31 kg; Height 5 ft. ll1 BP 97 / 63; Pulse 58; Resp 18; Pulse Ox 96% on R/A; BP 110 / 65; Pulse 51; Resp 18; Pulse Ox 98% on R/A; Labs: WBC 8.9 with neutrophils of 75.7%, H/H 11.8/36.3, electrolytes unremarkable except a potassium of 3.3 (magnesium 1.8). Current creatinine 1.02 with a BUN of 32 and a GFR of 75. BNP 1052 with a T. bili of 1.1, troponin 10.2, flu A, B, SARS negative Urine: U WBC greater than 50, U RBC greater than 50, reflex for culture, urine WBC clumps Hospital Course: Mr. Swanson has been hemodynamically stable, clear yellow urine in Leo, will follow-up with Dr. Hayes outpatient. Urine culture grew Pseudomonas and Staph aureus, both sensitive to Cipro. Pharmacy consultation states IV and p.o. are bioequivalent, Mr. Swanson will be discharged with the Leo on p.o. Cipro 500 mg p.o. twice daily x 14 days. <Karlene Prado - Last Filed: 03/13/24 09:18> Admission Date: 03/10/24 Discharge Date: 03/13/24 Hospital Course: Pt ron nd examined. I agree with the note by the TRANSIT PLANNER. Continue Cipro as prescribed for UTI. Ok to discharge pt. <Theo Rodrigues - Last Filed: 03/13/24 14:12> Disposition: DC HOME/HOME HEALTH CARE Discharge Condition: GOOD Vital Signs/Physical Exam: Temp Pulse Resp BP Pulse Ox 98.0 F 70 14 148/86 H 94 03/13/24 08:00 03/13/24 08:00 03/13/24 08:00 03/13/24 08:00 03/13/24 08:00 General: Alert, In no apparent distress, Oriented x3 HEENT: Atraumatic, Normocephalic Neck: Supple Respiratory: Clear to auscultation bilaterally, Normal air movement Cardiovascular: Normal pulses, Regular rate/rhythm Capillary refill: <2 Seconds Gastrointestinal: Normal bowel sounds Musculoskeletal: No clubbing, No swelling Integumentary: No rashes Neurological: Normal speech, Normal tone, Normal affect Lymphatics: No axilla or inguinal lymphadenopathy Urinary: Leo catheter External genitalia: Deferred Rectal: Deferred Laboratory Data at Discharge: WBC 5.00 thou/uL (4.3-10.9) 03/13/24 05:00 Hgb 10.9 g/dL (13.6-17.9) L 03/13/24 05:00 Hct 32.3 % (39.6-49.0) L 03/13/24 05:00 Plt Count 143 thou/uL (152-406) L 03/13/24 05:00 PT 13.6 SECONDS (9.4-12.5) H 03/10/24 12:05 INR 1.22 03/10/24 12:05 Sodium 141 mEq/L (136-145) 03/13/24 05:00 Potassium 3.7 mEq/L (3.5-5.1) 03/13/24 05:00 BUN 11 mg/dL (7-18) 03/13/24 05:00 Creatinine 0.68 mg/dL (0.70-1.30) L 03/13/24 05:00 Glucose 88 mg/dL (74-106) 03/13/24 05:00 Phosphorus 2.7 mg/dL (2.5-4.9) 03/13/24 05:00 Magnesium 1.9 mg/dL (1.6-2.4) 03/13/24 05:00 Total Bilirubin 0.7 mg/dL (0.2-1.0) 03/13/24 05:00 AST 34 U/L (15-37) 03/13/24 05:00 ALT 27 U/L (16-61) 03/13/24 05:00 Alkaline Phosphatase 78 U/L (45-117) 03/13/24 05:00 Triglycerides 122 mg/dL (<150) 03/11/24 04:54 Cholesterol 113 mg/dL (<200) 03/11/24 04:54 HDL Cholesterol 20 mg/dL (40-60) L 03/11/24 04:54 Cholesterol/HDL Ratio 5.65 03/11/24 04:54 <Prado,Karlene Lasha - Last Filed: 03/13/24 09:18> Vital Signs/Physical Exam: Temp Pulse Resp BP Pulse Ox 98.3 F 70 12 142/83 H 95 03/13/24 12:00 03/13/24 12:00 03/13/24 12:00 03/13/24 12:00 03/13/24 12:00 Laboratory Data at Discharge: WBC 5.00 thou/uL (4.3-10.9) 03/13/24 05:00 Hgb 10.9 g/dL (13.6-17.9) L 03/13/24 05:00 Hct 32.3 % (39.6-49.0) L 03/13/24 05:00 Plt Count 143 thou/uL (152-406) L 03/13/24 05:00 PT 13.6 SECONDS (9.4-12.5) H 03/10/24 12:05 INR 1.22 03/10/24 12:05 Sodium 141 mEq/L (136-145) 03/13/24 05:00 Potassium 3.7 mEq/L (3.5-5.1) 03/13/24 05:00 BUN 11 mg/dL (7-18) 03/13/24 05:00 Creatinine 0.68 mg/dL (0.70-1.30) L 03/13/24 05:00 Glucose 88 mg/dL (74-106) 03/13/24 05:00 Phosphorus 2.7 mg/dL (2.5-4.9) 03/13/24 05:00 Magnesium 1.9 mg/dL (1.6-2.4) 03/13/24 05:00 Total Bilirubin 0.7 mg/dL (0.2-1.0) 03/13/24 05:00 AST 34 U/L (15-37) 03/13/24 05:00 ALT 27 U/L (16-61) 03/13/24 05:00 Alkaline Phosphatase 78 U/L (45-117) 03/13/24 05:00 Triglycerides 122 mg/dL (<150) 03/11/24 04:54 Cholesterol 113 mg/dL (<200) 03/11/24 04:54 HDL Cholesterol 20 mg/dL (40-60) L 03/11/24 04:54 Cholesterol/HDL Ratio 5.65 03/11/24 04:54 <Theo Rodrigues - Last Filed: 03/13/24 14:12> Diet: AHA Activity: Ad nik <Karlene Prado - Last Filed: 03/13/24 09:18> <Theo Rodrigues - Last Filed: 03/13/24 14:12> Home Medications: Ascorbic Acid [Vitamin C*] 500 mg PO M,W,F 11/16/23 Pantoprazole [Protonix Tab*] 40 mg PO DAILY 11/16/23 Sucralfate [Carafate*] 1 gm PO DAILY 11/16/23 Tamsulosin [Flomax*] 0.4 mg PO BEDTIME 01/05/24 Ciprofloxacin HCl [Cipro] 500 mg PO BID 10 Days #20 tab 01/07/24 Ciprofloxacin HCl [Cipro 500 MG Tablet] 500 mg PO BID #28 tab 03/13/24 New Medications: Ciprofloxacin HCl [Cipro 500 MG Tablet] 500 mg PO BID #28 tab Physician Discharge Instructions: HOME HEALTH WILL RESUME WITH: [facility]) Mobile P:[phone] [place] Office P:[phone] Hospital course: Mr. Swanson has been hemodynamically stable, clear yellow urine in Leo, will follow-up with Dr. Hayes outpatient. Urine culture grew Pseudomonas and Staph aureus, both sensitive to Cipro. Pharmacy consultation states IV and p.o. are bioequivalent, Mr. Swanson will be discharged with the Leo on p.o. Cipro 500 mg p.o. twice daily x 14 days. New Medications Ciprofloxacin 500mg orally every 12h x 14 days #28 Assessment: Indwelling Leo with hematuria and clotting UTI with Pseudomonas and staph aureus BPH PMH: BPH Dementia Continue home medicines as previously prescribed GOAL: Clear understanding of disease process Diet: AHA, low sodium Activity: Fall precautions INSTRUCTIONS: Physician Discharge Instructions: Okay to DC IV and DC home Follow-up with primary care provider in 1 to 2 weeks Follow-up with Dr. Hayes in 1 to 2 weeks Please call the inpatient unit for any questions or concerns regarding hospital stay Return to the ER for worsening symptoms Followup: Zac Hayes [ACTIVE - CAN ADMIT] - 1-2 Weeks Xi Carson DO [Primary Care Provider] - 1-2 Weeks
[2024-03-13 12:07] VITALS: BP 142/83; TEMP 98.3
--- NOTE | 2024-03-13 12:24 | EKG ---
Test Date: 2024-03-10 Test Time: 12:00:12 Test Car Driver: PH MEASUREMENT RESULTS: Intervals: Rate: 56 MN: 162 QRSD: 140 QT: 462 QTc: 445 [place]: P: 15 MN: 162 QRS: 14 T: 40 INTERPRETIVE STATEMENTS: Sinus bradycardia Right bundle branch block Abnormal ECG Compared to ECG 01/04/2024 20:04:33 Sinus rhythm no longer present Electronically Signed On 03-13-24 12:18:24 CDT by Sj Montilla
[2024-03-13] MEDS ORDERED: CIPROFLOXACIN HCL 500 MG TAB PO SCH (21:00)
== END 2024-03-13 12:15 | disposition home health service (06) | DRG 699 ==
LOC: ER 11:23 → ERHOLD 17:15 → 2ND 18:12
PROVIDERS: ADMIT Hospitalist; ATTEND Hospitalist
PROC: 0T2BX0Z Change Drainage Device in Bladder, External Approach (ICD-10-PCS; principal; 2024-03-10)
DX: T83.091A Other mechanical complication of indwelling urethral catheter, initial encounter (principal); E44.0 Moderate protein-calorie malnutrition; N39.0 Urinary tract infection, site not specified; E86.0 Dehydration; I10 Essential (primary) hypertension; I95.9 Hypotension, unspecified; I45.10 Unspecified right bundle-branch block; E87.6 Hypokalemia; D63.8 Anemia in other chronic diseases classified elsewhere; D69.6 Thrombocytopenia, unspecified; F03.90 Unspecified dementia, unspecified severity, without behavioral disturbance, psychotic disturbance, mood disturbance, and anxiety; N40.1 Benign prostatic hyperplasia with lower urinary tract symptoms; R33.8 Other retention of urine; R31.9 Hematuria, unspecified; Z11.52 Encounter for screening for COVID-19; Z68.23 Body mass index [BMI] 23.0-23.9, adult; Z85.828 Personal history of other malignant neoplasm of skin; Z79.899 Other long term (current) drug therapy; T83.89XD Other specified complication of genitourinary prosthetic devices, implants and grafts, subsequent encounter
CPT/HCPCS: 36415; 51702; 71045; 80048; 80053; 80061; 80076; 81015; 83735; 83880; 84100; 84132; 84484; 85025; 85610; 87040; 87077; 87086; 87088; 87186; 87804; 87811; 93005; 96360; 99285; J0744; J1650; J2185; J2470; J3475; J7030

== ENCOUNTER 2024-03-21 14:45 | Emergency (ER) | payer OTHER ==
[2024-03-21] MEDS ORDERED: NA CHLORIDE 0.9% 1,000 ML ONE (15:59)
[2024-03-21 16:24] LABS: Absolute Basophils 0.1 K/uL (0-0.5); Absolute Eosinophils 0.2 K/uL (0-0.5); Absolute Lymphocytes (CBC) 1.5 K/uL (0.7-4.9); Absolute Monocytes 0.5 K/uL (0.1-1.3); Absolute Neutrophil 3.8 K/uL (1.8-8.0); Basophils % 1.1 % (0-1.3); Eosinophils % 2.7 % (0-4.4); Hematocrit 36.7 % (39.6-49.0); Lymphocytes % 24.5 % (15.3-44.8); MCH 27.8 pg (27.0-35.0); MCHC 32.7 g/dL (32.0-36.0); MCV 85.1 fL (80-100); MPV 7.4 fL (7.6-11.3); Monocytes % 8.4 % (3.3-12.3); Neutrophils % 63.3 % (41.7-73.7); Nucleated Red Blood Cells % 0.6 % (0-0); Platelets 306 thou/uL (152-406); RBC Red Blood Cell Count 4.31 M/uL (4.33-5.43); Red Cell Distribution Width 15.2 % (12.1-15.2)
[2024-03-21 16:29] LABS: Specific Gravity 1.017 (1.005-1.030); Sqamous Epithelial None Seen /HPF (None Seen); Urine Bacteria None Seen /HPF (<20); Urine Bilirubin NEGATIVE (Negative); Urine Blood Negative (Negative); Urine Clarity Clear (Clear); Urine Color Light-Yellow (Yellow); Urine Culture Reflex Order NOT NEEDED; Urine Glucose NEGATIVE (Negative); Urine Ketones NEGATIVE (Negative); Urine Microscopic Reflex YN ORDER UMIC; Urine Mucus Slight /HPF (None Seen); Urine Nitrite NEGATIVE (Negative); Urine Protein NEGATIVE (Negative); Urine RBC <5 /HPF (None Seen); Urine Urobilinogen Normal (Normal); Urine WBC <5 /HPF (<5); Urine pH 5.5 (5.0-7.0)
[2024-03-21 17:08] LABS: Albumin 3.2 g/dL (3.4-5.0); Albumin/Globulin Ratio 0.8 (1.1-1.8); Anion Gap 7.1 mEq/L (5.0-15.0); Bilirubin Total 0.4 mg/dL (0.2-1.0); Potassium 4.1 mEq/L (3.5-5.1); Protein, Total 7.2 g/dL (6.4-8.2)
--- NOTE | 2024-03-21 17:57 | RAD REPORT ---
EXAMINATION: CT ABDOMEN AND PELVIS WITH CONTRAST CLINICAL INDICATION: Male, 79 years old.lower abd pain TECHNIQUE: CT abdomen and pelvis was performed, after the administration of IV contrast, as per depar tment protocol. Axial, sagittal and coronal reconstructions were obtained. One or more of the following dose reduction techniques were used: Automated exposure control, adjustment of the mA and/o r kV according to patient size, and/or iterative reconstruction. Unless otherwise specified, incidental findings do not require dedicated imaging follow-up. [id number]. COMPARISON: 01/04/2024 FINDINGS: LOWER CHEST: Moderate hiatal hernia. LIVER: Benign-appearing low-density lesion measuring approximately 12 mm in the inferior aspect of th e right hepatic lobe. GALLBLADDER/BILE DUCT: No biliary ductal dilatation.? PANCREAS: No significant abnormality. SPLEEN: Normal size. No focal lesion. ADRENALS: Normal; no mass. KIDNEYS AND URETERS: Punctate nonobstructing stone in the left kidney. Bilateral renal lesions which are either benign in appearance or too small to accurately characterize but statistically benign.. GASTROINTESTINAL TRACT: Stomach is non-dilated. Small bowel has normal course and caliber. No colonic wall thickening or pericolonic inflammatory changes. Diverticulosis without diverticulitis. PERITONEUM: No ascites. Small fat-containing umbilical hernia. LYMPH NODES: No lymphadenopathy. ABDOMINAL AORTA AND OTHER VESSELS: Normal caliber aorta and IVC. Mild atherosclerosis. URINARY BLADDER: Normal contour. REPRODUCTIVE ORGANS: Leo catheter is deployed within the prostate. The prostate is enlarged measuri ng approximately 6.8 cm in transverse dimension. MUSCULOSKELETAL: No acute or suspicious osseous abnormality. Multilevel degenerative changes are pres ent in the spine. ADDITIONAL FINDINGS: None. IMPRESSION: Leo catheter balloon insufflated within the prostate. Recommend repositioning of the Leo catheter . No other acute findings identified.
--- NOTE | 2024-03-21 18:10 | ER ---
Nurse's Notes [facility] Name: Allen Swanson Age: 79 yrs Sex: Male : 1945 Arrival Date: 03/21/2024 Time: 14:45 Bed 14 Private MD: Diagnosis: Other mechanical complication of urinary (indwelling) catheter Presentation: 03/21 15:20 Chief complaint: Pt's daughter reports being sent here by Dr. Carson for UTI. Pt's aa5 daughter states "He was just here in the hospital for the urine infection and it's not getting any better, he is having mucus coming out of his penis and his urine looks darker". 15:20 Coronavirus screen: At this time, the client does not indicate any symptoms associated aa5 with coronavirus-19. Ebola Screen: Patient denies travel to an Ebola-affected area in the 21 days before illness onset. Initial Sepsis Screen: Does the patient meet any 2 criteria? No. Patient's initial sepsis screen is negative. Does the patient have a suspected source of infection? No. Patient's initial sepsis screen is negative. Risk Assessment: Do you want to hurt yourself or someone else? Unable to obtain. Onset of symptoms was March 21, 2024. 15:20 Acuity: RUDY 3 aa5 15:20 Method Of Arrival: Ambulatory aa5 Triage Assessment: 18:32 General: Behavior is calm. ko1 Historical: - PMHx: 15:25 History of urinary tract infection; Hypertensive disorder; skin cancer; aa5 15:25 TIA; Alzheimer's disease; aa5 - PSHx: 15:25 Skin cancer removal; aa5 - Immunization history:: Adult Immunizations unknown. - Infectious Disease History:: Denies. - Social history:: Smoking status: Patient denies any tobacco usage or history of. Screenin:31 [facility] ED Fall Risk Assessment (Adult) History of falling in the last 3 months, ko1 including since admission No falls in past 3 months (0 pts) Confusion or Disorientation Yes (5 pts) Intoxicated or Sedated No (0 pts) Impaired Gait No (0 pts) Mobility Assist Device Used No (0 pt) Altered Elimination Yes (1 pt) Score/Fall Risk Level 3 or more points = High Risk Oriented to surroundings, Maintained a safe environment, Educated pt \\T\\ family on fall prevention, incl call for assistance when getting out of bed, Assessed \\T\\ reinforced patient's understanding of fall precautions, Provided non-skid footwear, Hourly rounding (assess needs \\T\\ fall precautionary measures) done, Used ambulatory aids as needed (educated on \\T\\ assisted with), Used gait belt as appropriate Implemented a Fall Risk Plan of Care, Apply high fall risk patient identification: yellow non skid footwear/ fall signage, Remained w/in arm's length of patient and in sight while toileting, Offered frequent toileting (1:1 observation), Remained with patient while ambulating. Abuse screen: Denies threats or abuse. Denies injuries from another. Nutritional screening: No deficits noted. Tuberculosis screening: No symptoms or risk factors identified. Assessment: 16:00 General: Appears in no apparent distress. Pain: Denies pain. Neuro: Level of ko1 Consciousness is awake, alert, obeys commands, confused, Oriented to dementia. Cardiovascular: No deficits noted. Respiratory: No deficits noted. GI: No deficits noted. : Leo in place clamped. EENT: No deficits noted. Derm: No deficits noted. Musculoskeletal: No deficits noted. Vital Signs: 15:20 BP 104 / 58; Pulse 65; Resp 18 S; Temp 97.5(TE); Pulse Ox 95% on R/A; aa5 16:56 BP 116 / 80; Pulse 56; Resp 15; Pulse Ox 100% ; ko1 18:31 BP 124 / 78; Pulse 62; Resp 15; Pulse Ox 99% ; ko1 ED Course: 14:49 Patient arrived in ED. mg5 15:10 Joce Myrick MD is Attending Physician. ec2 15:20 Arm band placed on. aa5 15:28 Triage completed. aa5 16:01 Lisa Bartlett, [place] is Primary Nurse. ko1 16:17 CBC with Diff Sent. ko1 16:17 CMP Sent. ko1 16:17 Lipase Sent. ko1 16:17 No provider procedures requiring assistance completed. Initial lab(s) drawn, by pa, ko1 sent to lab. Urine collected: Leo catheter specimen, clear. Inserted saline lock: 20 gauge in right forearm, using aseptic technique. Blood collected. Flushed with 10 mL NS. 16:22 Urinalysis w/ reflexes Sent. ko1 16:30 Patient has correct armband on for positive identification. Bed in low position. Call ko1 light in reach. Side rails up X2. Provided Education on: LABS. Client placed on continuous cardiac and pulse oximetry monitoring. NIBP monitoring applied. classroom monitor on. Door closed. Noise minimized. Lights dimmed. Warm blanket given. Pillow given. 17:[address] via stretcher. ko1 17:49 CT Abd/Pelvis - IV Contrast Only In Process Unspecified. EDMS 18:09 Zac Hayes MD is Referral Physician. ec2 18:31 IV discontinued, intact, bleeding controlled, No redness/swelling at site. Pressure ko1 dressing applied. Administered Medications: 16:17 Drug: NS 0.9% IV 1000 ml IV at 1 bolus Per protocol; to be given as a bolus over 60 ko1 minutes Route: IV; Rate: 1 bolus; Site: right forearm; 17:24 Follow up: Response: No adverse reaction; IV Status: Completed infusion; IV Intake: ko1 1000ml Medication: 18:31 VIS not applicable for this client. ko1 Intake: 17:24 IV: 1000ml; Total: 1000ml. ko1 Outcome: 18:09 Discharge ordered by . ec2 18:31 Discharged to home ambulatory, with family, ko1 18:31 Condition: stable 18:31 Discharge instructions given to patient, family, Instructed on discharge instructions, follow up and referral plans. catheter care Demonstrated understanding of instructions, follow-up care, catheter care 18:35 Patient left the ED. ko1 Signatures: Dispatcher [employer] [facility] Dulce Lyles RN RN aa5 Lisa Bartlett RN RN ko1 Genny Smith mg5 Joce Myrick MD MD ec2
--- NOTE | 2024-03-21 18:10 | EDPHYS ---
Physician Documentation [facility] Name: Allen Swanson Age: 79 yrs Sex: Male : 1945 Arrival Date: 03/21/2024 Time: 14:45 Bed 14 Private MD: ED Physician Joce Myrick HPI: 03/21 15:39 This 79 yrs old Male presents to ER via Ambulatory with complaints of SENT BY DR. briggs 15:39 Patient arrives today due to concern for recurrent urinary tract infection, patient ec2 reports that reportedly he has been having some urinary symptoms, was recently treated for urinary tract infection. Has been having what they described as "mucus ". No fevers or chills, nausea or vomiting, no abdominal pain.. Historical: - PMHx: 15:25 History of urinary tract infection; Hypertensive disorder; skin cancer; aa5 15:25 TIA; Alzheimer's disease; aa5 - PSHx: 15:25 Skin cancer removal; aa5 - Immunization history:: Adult Immunizations unknown. - Infectious Disease History:: Denies. - Social history:: Smoking status: Patient denies any tobacco usage or history of. ROS: 15:39 Constitutional: as per hpi ec2 Exam: 15:39 Constitutional: GEN: NAD Head: atraumatic Eyes: EOMI Ears: External ears are ec2 normal. CV: regular rate LUNGS: no respiratory distress ABD: non-distended SKIN: no evidence of rashes MSK: no evidence of trauma Vital Signs: 15:20 BP 104 / 58; Pulse 65; Resp 18 S; Temp 97.5(TE); Pulse Ox 95% on R/A; aa5 16:56 BP 116 / 80; Pulse 56; Resp 15; Pulse Ox 100% ; ko1 18:31 BP 124 / 78; Pulse 62; Resp 15; Pulse Ox 99% ; ko1 MDM: 15:32 Medical Screening Exam initiated ec2 15:39 Data reviewed: vital signs. ED course: Patient arrives today for evaluation of urinary ec2 complaints. Examination as unrevealing. Will obtain lab work and urine studies. Differential includes urinary tract infection, dysuria, electrolyte disturbances, renal dysfunction.. 18:08 ED course: Urine is noninfectious appearing. CT imaging shows prostatic placement of ec2 the Leo catheter, will advance this. Will have the patient continue ciprofloxacin. Will discharge home have the patient follow-up expectantly with urology. Return precautions given.. 03/21 15:29 Order name: CBC with Diff; Complete Time: 16:41 ec2 03/21 15:29 Order name: CMP; Complete Time: 17:18 ec2 03/21 15:29 Order name: Lipase; Complete Time: 17:18 ec2 03/21 15:29 Order name: Urinalysis w/ reflexes; Complete Time: 16:41 ec2 03/21 16:41 Order name: CT Abd/Pelvis - IV Contrast Only; Complete Time: 17:59 ec2 03/21 15:29 Order name: IV Saline Lock; Complete Time: 16:17 ec2 03/21 15:29 Order name: Labs collected and sent; Complete Time: 16:17 ec2 Administered Medications: 16:17 Drug: NS 0.9% IV 1000 ml IV at 1 bolus Per protocol; to be given as a bolus over 60 ko1 minutes Route: IV; Rate: 1 bolus; Site: right forearm; 17:24 Follow up: Response: No adverse reaction; IV Status: Completed infusion; IV Intake: ko1 1000ml Disposition Summary: 03/21/24 18:09 Discharge Ordered Notes: Location: Home ec2 Condition: Stable ec2 Diagnosis - Other mechanical complication of urinary (indwelling) catheter ec2 Followup: ec2 - With: Zac Hayes MD - When: - Reason: Recheck today's complaints Discharge Instructions: - Discharge Summary Sheet ec2 - Indwelling Urinary Catheter Care, Adult, [id number] ec2 Forms: - Medication Reconciliation Form ec2 - Antibiotic Education ec2 - Prescription Opioid Use ec2 - Patient Portal Instructions ec2 - Leadership Thank You Letter ec2 Signatures: Dispatcher [employer] Dulce Gregorio RN RN aa5 Lisa Bartlett RN RN ko1 Joce Myrick MD MD ec2 Corrections: (The following items were deleted from the chart) 15:29 15:29 CBC+H.LAB.BRZ ordered. EDMS EDMS 15:29 15:29 COMPREHENSIVE METABOLIC PANEL+C.LAB.BRZ ordered. EDMS EDMS 15:29 15:29 LIPASE+C.LAB.BRZ ordered. EDMS EDMS 15:29 15:29 Urinalysis+U.LAB.BRZ ordered. EDMS EDMS
[2024-03-21 19:11] VITALS: TEMP 97.5
[2024-03-21 19:22] VITALS: BP 124/78; O2SAT 99
== END 2024-03-21 18:35 | disposition home or self-care (01) ==
LOC: ER 14:45
DX: T83.098A Other mechanical complication of other urinary catheter, initial encounter (principal)
CPT/HCPCS: 85025; 81001; 36415; 83690; 80053; 74177; 96360; 99285; Q9967; J7030